=== PATIENT | female | born 1960 | race Caucasian/White ===

== ENCOUNTER → 2016-06-22 | Outpatient (CLI) | payer BC ==
[2016-01-14 16:00] VITALS: BP 103/56
[~2016-06-22] MED LIST: ALPR0.25 PO; ALPR0.254 PO; AMIO200T2 PO; ASPI-482 PO; ATOR40TA59 PO; BREO ELLIPTA 21 EACH IH; BUPR100T8 PO; BUPR75TA5 PO; BUSP5TAB PO; CARV25TA PO; CITA10TA4 PO; FURO40TA4 PO; LEVO25TA4 PO; LISI-338 PO; MULT-208 PO; PANT40TA5 PO; POTA20TA12 PO; PRAV10TA2 PO; PROP40TA PO; WARF10TA PO; WARF3TAB7 PO
--- NOTE | 2016-06-23 15:03 | CARD ---
APPROVED REPORT EXAM: Two-dimensional and M-mode echocardiogram with Doppler and color Doppler. Other Information Quality : GoodHR: 67bpm Rhythm : NSR INDICATION Chronic systolic heart failure RISK FACTORS Obesity Hyperlipidemia Family History 2D DIMENSIONS RVDd2.6 (2.9-3.5cm)Left Atrium(2D)3.7 (1.6-4.0cm) IVSd1.0 (0.7-1.1cm)Aortic Root(2D)2.9 (2.0-3.7cm) LVDd5.3 (3.9-5.9cm)LVOT Diameter2.4 (1.8-2.4cm) PWd1.0 (0.7-1.1cm)LVDs4.4 (2.5-4.0cm) FS (%) 16.0 %SV44.6 ml Aortic Valve AoV Peak Jaes.145.6cm/sAoV VTI33.0cm AO Peak GR.8.5mmHgLVOT Peak Jase.101.0cm/s AO Mean GR.5mmHgAVA (VMAX)3.11cm2 Mitral Valve MV E Rjrlmeov21.3cm/sMV E Peak Gr.4mmHg MV DECEL [id number] A Uwnvbenn06.0cm/s MV E Mean Gr.2mmHgE/A Ratio0.7 MV A [id number] Pulmonary Valve PV Peak Wpksjeka195.2cm/s Tricuspid Valve TR P. Ntztkzzb460jx/sTR Peak Gr.35mmHg Pulmonary Vein S1 Gtdicwfy14.7cm/sD2 Yklgnvuu04.0cm/s PVa bqigakpo70vupc LEFT VENTRICLE The left ventricle is normal size. There is normal left ventricular wall thickness. Left ventricle sy stolic function is moderately impaired. The Ejection Fraction is 30-35%. There is severe hypokinesis in the anterior,anteroseptal and septal hubbard. Transmitral Doppler flow pattern is Grade I-abnormal r elaxation pattern. No left ventricle thrombus noted on this study. There is no left ventricular aneur ysm. RIGHT VENTRICLE The right ventricle is normal size. There is normal right ventricular wall thickness. The right ventr icular systolic function is normal. A pacemaker/defibrillator lead is noted in the right ventricle. ATRIA The left atrium size is normal. The right atrium size is normal. The interatrial septum is intact wit h no evidence for an atrial septal defect or patent foramen ovale as noted on 2-D or Doppler imaging. AORTIC VALVE The aortic valve is mild sclerotic. Doppler and Color Flow revealed no significant aortic regurgitati on. There is no significant aortic valvular stenosis. MITRAL VALVE The mitral valve leaflets are thickened. There is no evidence of mitral valve prolapse. There is no m itral valve stenosis. Doppler and Color Flow revealed trace mitral valve regurgitation. TRICUSPID VALVE Doppler and Color Flow revealed trace to mild tricuspid regurgitation. The pulmonary artery systolic pressure is estimated at 38 mmHg. PULMONIC VALVE The pulmonary valve is normal in structure and function. Doppler and Color Flow revealed no pulmonic valvular regurgitation. There is no pulmonic valvular stenosis. GREAT VESSELS The aortic root is normal in size. The ascending aorta is normal in size. The pulmonary artery is nor mal. The IVC is normal in size and collapses >50% with inspiration. PERICARDIAL EFFUSION There is no evidence of significant pericardial effusion. Critical Notification Critical Value: No <Conclusion> The left ventricle is normal size. Left ventricle systolic function is moderately impaired. The Ejection Fraction is 30-35%. There is severe hypokinesis in the anterior,anteroseptal and septal hubbard. There is no significant aortic valvular stenosis. Doppler and Color Flow revealed no significant aortic regurgitation. Doppler and Color Flow revealed trace mitral valve regurgitation. Doppler and Color Flow revealed trace to mild tricuspid regurgitation. The pulmonary artery systolic pressure is estimated at 38 mmHg.
== END | disposition home or self-care (01) ==
LOC: ECHO 09:23
PROVIDERS: ATTEND Internal Medicine Cardiovascular Disease
DX: I50.22 Chronic systolic (congestive) heart failure (principal); I08.3 Combined rheumatic disorders of mitral, aortic and tricuspid valves
CPT/HCPCS: 93306

== ENCOUNTER 2016-08-06 09:04 | Inpatient (IN) | payer BC ==
[~2016-08-06] VITALS: Ht 162.6 cm; Wt 118.8 kg
[~2016-08-06 09:04] MED LIST changes: -WARF10TA PO; +WARF10TA45 PO
[2016-08-06] MEDS ORDERED: ALBUTEROL SULFATE 2.5 MG/3 ML NEBU. ONE (09:22)
[2016-08-06] MEDS ORDERED: IPRATRPIUM/ALBUTEROL 0.5/2.5MG 3 ML NEBU. ONE (09:22)
--- NOTE | 2016-08-06 09:28 | PHYS DOC ---
Past Medical History Past Medical History: Anxiety, CAD, High Cholesterol, Hypertension, Other Additional Past Medical Histor: obesity, HYPOKALEMIA Past Surgical History: Coronary Bypass Surgery, Pacemaker Alcohol Use: None Drug Use: None Adult General Chief Complaint Chief Complaint: SHORTNESS OF BREATH HPI HPI Patient is a 55 year old female presenting to the emergency department for evaluation of worsening shortness of breath. She says this has been going on for several days and she is coughing up clear fluid. She has been using her inhaler at home with minimal relief and she says that she feels quite short of breath especially when she is up walking around. She denies any chest pain diaphoresis nausea vomiting unilateral leg swelling. Her last putter away is Dr. Tamayo. Her room air auction saturation is 88% and she does not use oxygen at home. She says that she quit smoking 2 years ago. Review of Systems Review of Systems Constitutional: Denies fever or chills [] Eyes: Denies change in visual acuity, redness, or eye pain [] HENT: Denies nasal congestion or sore throat [] Respiratory: + cough and shortness of breath [] Cardiovascular: No additional information not addressed in HPI [] GI: Denies abdominal pain, nausea, vomiting, bloody stools or diarrhea [] : Denies dysuria or hematuria [] Musculoskeletal: Denies back pain or joint pain [] Integument: Denies rash or skin lesions [] Neurologic: Denies headache, focal weakness or sensory changes [] Current Medications Current Medications Current Medications Medications (Trade) Dose Ordered Sig/Ken Start Time Stop Time Status Last Admin Dose Admin Albuterol Sulfate (Ventolin Neb Soln) 2.5 mg 1X ONCE 08/06/16 09:30 08/06/16 09:31 DC 08/06/16 09:39 2.5 MG Albuterol/ Ipratropium (Duoneb) 3 ml 1X ONCE 08/06/16 09:30 08/06/16 09:31 DC 08/06/16 09:30 3 ML Dexamethasone Sodium Phosphate (Decadron) 10 mg 1X ONCE 08/06/16 09:30 08/06/16 09:31 DC 08/06/16 09:41 10 MG Allergies Allergies Allergies Coded Allergies Type Severity Reaction Last Updated Verified No Known Drug Allergies 01/08/15 No Physical Exam Physical Exam Constitutional: Well developed, well nourished, no acute distress, non-toxic appearance. [] HENT: Normocephalic, atraumatic, bilateral external ears normal, oropharynx moist, no oral exudates, nose normal. [] Eyes: PERRLA, EOMI, conjunctiva normal, no discharge. [] Neck: Normal range of motion, no tenderness, supple, no stridor. [] Cardiovascular:Heart rate regular rhythm, no murmur [] Lungs & Thorax: Bilateral breath sounds diminished with expiratory wheezes noted. Abdomen: Bowel sounds normal, soft, no tenderness, no masses, no pulsatile masses. [] Skin: Warm, dry, no erythema, no rash. [] Back: No tenderness, no CVA tenderness. [] Extremities: No tenderness, no cyanosis, no clubbing, ROM intact, no edema. [] Neurologic: Alert and oriented X 3, normal motor function, normal sensory function, no focal deficits noted. [] Current Patient Data Vital Signs Vital Signs Date Time Temp Pulse Resp B/P (MAP) Pulse Ox O2 Delivery O2 Flow Rate FiO2 08/06/16 09:33 94 Nasal Cannula 2.0 08/06/16 09:08 98.8 85 28 136/64 (88) 98.8 Lab Values Laboratory Tests Test 08/06/16 09:25 08/06/16 09:32 Sodium Level 137 mmol/L (136-145) Potassium Level 2.7 mmol/L (3.5-5.1) *L Chloride Level 97 mmol/L (98-107) L Carbon Dioxide Level 32 mmol/L (21-32) Anion Gap 8 (6-14) Blood Urea Nitrogen 16 mg/dL (7-20) Creatinine 1.0 mg/dL (0.6-1.0) Estimated GFR (Cockcroft-Gault) 58.0 BUN/Creatinine Ratio 16 (6-20) Glucose Level 129 mg/dL (70-99) H Calcium Level 10.7 mg/dL (8.5-10.1) H Magnesium Level 2.1 mg/dL (1.8-2.4) Total Bilirubin 0.7 mg/dL (0.2-1.0) Aspartate Amino Transferase (AST) 23 U/L (15-37) Alanine Aminotransferase (ALT) 26 U/L (14-59) Alkaline Phosphatase 182 U/L (46-116) H Troponin I Quantitative < 0.017 ng/mL (0.000-0.055) ZG-[id number]-[id number]-Type Natriuretic Peptide 1047 pg/mL (0-124) H Total Protein 8.3 g/dL (6.4-8.2) H Albumin 3.3 g/dL (3.4-5.0) L Albumin/Globulin Ratio 0.7 (1.0-1.7) L Lactic Acid Level 1.4 mmol/L (0.4-2.0) Laboratory Tests 08/06/16 09:25 EKG EKG Sinus rhythm at 86 bpm with normal axis no deviation no obvious ST elevation or depression and normal T waves. Radiology/Procedures Radiology/Procedures EXAM: Chest, single view. HISTORY: Shortness of air. COMPARISON: 09/22/2015. FINDINGS: A frontal view of the chest is obtained. There is no infiltrate, effusion or pneumothorax. The heart is normal in size for portable technique. There are findings consistent with CABG. There is a left cardiac pacemaker defibrillator with leads in expected position. IMPRESSION: No acute pulmonary finding. DICTATED and SIGNED BY: RANDI RESENDIZ MD DATE: 08/06/16 0935 Course & Med Decision Making Course & Med Decision Making Patient given Decadron in addition to 2 breathing treatments and she continued to be hypoxic and requiring oxygen. She feels somewhat better but given her degree of dyspnea and that she is still requiring oxygen she'll be admitted for further observation and treatment. Dragon Disclaimer Dragon Disclaimer This electronic medical record was generated, in whole or in part, using a voice recognition dictation system. Departure Departure Impression: Primary Impression: COPD with acute exacerbation Additional Impressions: Hypokalemia Elevated brain natriuretic peptide (BNP) level Disposition: ADMITTED INPATIENT Admitting Physician: Prerna Talavera Condition: STABLE Referrals: KARINA LEHMAN MD (PCP) Problem Qualifiers DEYSI HOLLINGSWORTH DO August 06, 2016 09:28
[2016-08-06] MEDS ORDERED: DEXAMETHASONE SOD PHOS 20 MG/5 ML VIAL. IV ONE (09:30)
[2016-08-06] MEDS ORDERED: ALBUTEROL SULFATE 2.5 MG/3 ML NEBU. NEB ONE (09:30)
[2016-08-06] MEDS ORDERED: IPRATRPIUM/ALBUTEROL 0.5/2.5MG 3 ML NEBU. NEB ONE (09:30)
--- NOTE | 2016-08-06 09:38 | RAD ---
EXAM: Chest, single view. HISTORY: Shortness of air. COMPARISON: 09/22/2015. FINDINGS: A frontal view of the chest is obtained. There is no infiltrate, effusion or pneumothorax. The heart is normal in size for portable technique. There are findings consistent with CABG. There is a left cardiac pacemaker defibrillator with leads in expected position. IMPRESSION: No acute pulmonary finding.
--- NOTE | 2016-08-06 09:42 | EKG ---
[facility] [address] [place] [address] Test Date: 2016-08-06 Test Time: 09:12:07 Pat Name: YUMIKO CASTRO Department: Room: Gender: F [employer] Project Manager: : [id number] Requested By: DEYSI HOLLINGSWORTH Order Number: [id number] Reading MD: Esperanza Arthur Measurements Intervals Eagan Rate: 86 P: -37 RI: 144 QRS: 24 QRSD: 108 T: 47 QT: 388 QTc: 467 Interpretive Statements SINUS RHYTHM LEFT ATRIAL ABNORMALITY QRS(T) CONTOUR ABNORMALITY CONSISTENT WITH ANTERIOR INFARCT PROBABLY OLD CONSISTENT WITH INFERIOR INFARCT PROBABLY OLD Electronically Signed On 08-06-2016 15:59:31 CDT by Esperanza Arthur
[2016-08-06 09:52] LABS: ALBUMIN 3.3 g/dL (3.4-5.0); ALBUMIN/GLOBULIN RATIO 0.7 (1.0-1.7); CALCIUM 10.7 mg/dL (8.5-10.1); MAGNESIUM 2.1 mg/dL (1.8-2.4); TOTAL BILIRUBIN 0.7 mg/dL (0.2-1.0); TOTAL PROTEIN 8.3 g/dL (6.4-8.2)
[2016-08-06 09:53] LABS: INR 1.1 (0.8-1.1); PROTHROMBIN TIME PATIENT 13.3 SEC (11.7-14.0)
[2016-08-06 09:59] LABS: POTASSIUM 2.7 mmol/L (3.5-5.1)
[2016-08-06] MEDS ORDERED: ONDANSETRON PF 4 MG/2 ML VIAL. IV PRN ×2 (10:00→11:45)
[2016-08-06] MEDS ORDERED: POTASSIUM CHLORIDE 20 MEQ TABLET.ER. PO ONE (10:00)
[2016-08-06] MEDS ORDERED: POTASSIUM CL 40MEQ IN 0.9%NACL 1,000 ML IV ONE (10:00)
--- NOTE | 2016-08-06 10:12 | ACF ---
Admission Forms Criteria COPD Clinical Indications for Admission to Inpatient Care (Place 'X' for any and all applicable criteria): Admission is indicated for ANY ONE of the following (1)(2)(3): [X]I. Acute exacerbation by high-risk comorbidity (e.g., pneumonia, dysrhythmia, heart failure, pleural effusion, pneumothorax) or severe underlying COPD (e.g., steroid dependent) [ ]II. Inpatient admission required rather than observation care (see Chronic Obstructive Pulmonary Disease: Observation Care) because of ANY ONE of the following: [ ]a) New or pre-existing signs or symptoms of COPD (eg, dyspnea or Tachypnea at rest or with minimal activity) that persist despite outpatient and observation care treatment [ ]b) New-onset hypoxemia (room air SaO2 less than 90%, PO2 less than 60 mm Hg (8.0 kPa)) that persists despite outpatient and observation care treatment [ ]c) Worsening of pre-existing hypoxemia (eg, new or increased requirement for supplemental oxygen to maintain oxygenation at baseline level) that persists despite outpatient and observation care treatment, with oxygen treatment needs performable only in acute inpatient setting [ ]d) Hypercarbia (PCO2 greater than 40 mm Hg (5.3 kPa))-induced respiratory acidosis (pH less than 7.35) that persists despite outpatient and observation care treatment [ ]e) Supplemental oxygen or respiratory treatments for over 24 hours that are performable only in acute inpatient setting [ ]f) Chest tube placement with active evacuation (e.g., suction, drainage) (5) [ ]g) Other condition, treatment or monitoring requiring inpatient admission [ ]III. Planned invasive surgical or diagnostic procedures requiring acute- care hospitalization [ ]IV. Acute respiratory failure (e.g., uncompensated hypercarbia, severe hypoxemia) [ ]V. Severe comorbid condition (e.g., severe steroid myopathy, acute vertebral fracture) that has acutely worsened pulmonary function [ ]. Confusion state, lethargy, obtundation, stupor or coma Extended stay beyond goal length of stay may be needed for (31)(32): [ ]a ) Respiratory Failure. [ ]b) Severe or persisting hypoxemia or hypercarbia [ ]c) Severe or persistent dyspnea [ ]d) Comorbidities (e.g. chronic heart failure, atrial fibrillation with rapid response, pneumonia) [ ]e) Malnutrition The original [facility] content created by [facility] has been revised. The portions of the content which have been revised are identified through the use of italic text or in bold, and [facility] has neither reviewed nor approved the modified material. All other unmodified content is copyright [facility]. Please see references footnoted in the original [facility] edition 2016 Admission Criteria Met?: Yes CARYN BARBOSA August 06, 2016 10:12
[2016-08-06 10:19] LABS: BASO # 0.1 x10^3/uL (0.0-0.2); BASO % 0 % (0-3); EOS % 0 % (0-3); HEMATOCRIT 31.8 % (36.0-47.0); HEMOGLOBIN 10.4 g/dL (12.0-15.5); LYMPH # 1.4 x10^3/uL (1.0-4.8); LYMPH % 7 % (24-48); MEAN CORPUSCULAR HEMOGLOBIN 26 pg (25-35); MEAN CORPUSCULAR HGB CONC 33 g/dL (31-37); MEAN CORPUSCULAR VOLUME 79 fL (79-100); MONO % 6 % (0-9); NEUT % 86 % (31-73); PLATELET COUNT 376 x10^3/uL (140-400); RED BLOOD COUNT 4.01 x10^6/uL (3.50-5.40); RED CELL DISTRIBUTION WIDTH 16.8 % (11.5-14.5); WHITE BLOOD COUNT 18.9 x10^3/uL (4.0-11.0)
[2016-08-06 10:56] VITALS: BP 140/66
[2016-08-06] MEDS ORDERED: DOCU-27 PO (11:33)
[2016-08-06] MEDS ORDERED: hydrALAZINE 20 MG/ML VIAL. IVP PRN (11:45)
[2016-08-06] MEDS ORDERED: ACETAMINOPHEN 325 MG TABLET. PO PRN (11:45)
[2016-08-06] MEDS ORDERED: ALPRAZolam 0.25 MG TABLET PO PRN (11:45)
[2016-08-06] MEDS ORDERED: MORPHINE SULFATE 2 MG/ML DISP.SYRIN. IV PRN (11:45)
[2016-08-06] MEDS ORDERED: DOCUSATE SODIUM 100 MG CAPSULE. PO PRN (11:45)
[2016-08-06] MEDS ORDERED: ALBUTEROL SULFATE 2.5 MG/3 ML NEBU. NEB PRN (11:45)
[2016-08-06] MEDS ORDERED: traMADol 50 MG TABLET PO PRN (11:45)
[2016-08-06] MEDS: IPRATRPIUM/ALBUTEROL 0.5/2.5MG 3 ML NEBU. NEB SCH ×3 (11:52→19:36)
[2016-08-06] MEDS: DOCUSATE SODIUM 100 MG CAPSULE. PO SCH (12:00)
[2016-08-06] MEDS: ASPIRIN ENTERIC COATED 81 MG TABLET.DR. PO SCH (12:18)
[2016-08-06] MEDS: POTASSIUM CHLORIDE 20 MEQ TABLET.ER. PO SCH ×2 (12:18→17:23)
[2016-08-06] MEDS: predniSONE 20 MG TABLET PO SCH (12:20)
[2016-08-06] MEDS: busPIRone 5 MG TABLET. PO SCH ×2 (12:22→21:05)
[2016-08-06] MEDS: buPROPion 75 MG TABLET. PO SCH (12:23)
[2016-08-06 12:50] LABS: PLT ESTIMATE ADEQUATE (ADEQUATE)
--- NOTE | 2016-08-06 13:36 | PDOC1 ---
History and Physical Date of Admission Date of Admission 08/06/16 Identification/Chief Complaint Chief Complaint sob Problems: Source Source: Chart review, Patient History of Present Illness History of Present Illness Patient is a 55 year old female COPD, no smoking, no home o2, COMES to ER for sob. Pt has been feeling sob for 2days, with mild cough, mild sputum, denies fever, chills, has runny nose with cough, denies sick contact or any possible exposure. in ER, sat 88% on RA. She feels better post solumedrol and duoneb in ER. on NC 2 L now. Past Medical History Cardiovascular: CAD, HTN, Hyperlipidemia Pulmonary: COPD Past Surgical History Past Surgical History: CABG Family History Family History: Coronary Artery Disease Social History Smoke: Quit ALCOHOL: social Drugs: None Current Problem List Problem List Problems Medical Problems: (1) COPD with acute exacerbation Status: Acute (2) Elevated brain natriuretic peptide (BNP) level Status: Acute (3) Hypokalemia Status: Acute Current Medications Current Medications Current Medications Medications (Trade) Dose Ordered Sig/Ken Start Time Stop Time Status Last Admin Dose Admin Acetaminophen (Tylenol) 650 mg PRN Q6HRS PRN 08/06/16 11:45 Albuterol Sulfate (Ventolin Neb Soln) 2.5 mg PRN Q2HR PRN 08/06/16 11:45 Albuterol/ Ipratropium (Duoneb) 3 ml RTQID 08/06/16 12:00 08/06/16 11:52 3 ML Alprazolam (Xanax) 0.25 mg PRN Q6HRS PRN 08/06/16 11:45 Aspirin (Ecotrin) 81 mg DAILY 08/06/16 12:00 08/06/16 12:18 81 MG Atorvastatin Calcium (Lipitor) 20 mg QHS 08/06/16 21:00 Budesonide (Pulmicort) 0.5 mg RTBID 08/06/16 20:00 Bupropion HCl (Wellbutrin) 75 mg DAILY 08/06/16 12:00 08/06/16 12:23 75 MG Buspirone HCl (Buspar) 5 mg BID 08/06/16 12:00 08/06/16 12:22 5 MG Dexamethasone Sodium Phosphate (Decadron) 10 mg 1X ONCE 08/06/16 09:30 08/06/16 09:31 DC 08/06/16 09:41 10 MG Docusate Sodium (Colace) 100 mg PRN DAILY PRN 08/06/16 11:45 Famotidine (Pepcid) 20 mg QHS 08/06/16 21:00 Furosemide (Lasix) 60 mg BID92 08/06/16 14:00 Guaifenesin (Mucinex) 600 mg BID 08/06/16 12:00 08/06/16 12:19 600 MG Hydralazine HCl (Apresoline) 10 mg PRN Q4HRS PRN 08/06/16 11:45 Levothyroxine Sodium (Synthroid) 25 mcg DAILY07 08/07/16 07:00 Morphine Sulfate 2 mg PRN Q2HR PRN 08/06/16 11:45 Non-Formulary Medication 1 puff DAILY 08/07/16 09:00 08/07/16 09:00 DC Ondansetron HCl (Zofran) 4 mg PRN Q6HRS PRN 08/06/16 11:45 Potassium Chloride/Sodium Chloride 1,000 ml @ 125 mls/hr 1X ONCE 08/06/16 10:00 08/06/16 17:59 08/06/16 10:41 125 MLS/HR Potassium Chloride (Klor-Con) 40 meq TIDWMEALS 08/06/16 12:00 08/06/16 12:18 40 MEQ Prednisone (Prednisone) 40 mg DAILY 08/06/16 12:00 08/06/16 12:20 40 MG Tramadol HCl (Ultram) 50 mg PRN Q6HRS PRN 08/06/16 11:45 Allergies Allergies Allergies Coded Allergies Type Severity Reaction Last Updated Verified No Known Drug Allergies 01/08/15 No ROS Review of System CONSTITUTIONAL: No fever or chills EYES: No recent changes SKIN: No rash or itching CARDIOVASCULAR: No chest pain, syncope, palpitations, or edema RESPIRATORY: No SOB or cough GASTROINTESTINAL: No nausea, vomiting or abdominal pain NEUROLOGICAL: No headaches or weakness ENDOCRINE: No cold or heat intolerance GENITOURINARY: No urgency or frequency of urination MUSCULOSKELETAL: No back pain or joint pain LYMPHATICS: No enlarged lymph nodes PSYCHIATRIC: No anxiety or depression Physical Exam Physical Exam GEN.: No apparent distress. Alert and oriented. HEENT: Head is normocephalic, atraumatic NECK: Supple. LUNGS: bl coarse bs HEART: RRR, S1, S2 present. Peripheral pulses intact ABDOMEN: Soft, nontender. Positive bowel sounds. EXTREMITIES: Without any cyanosis. NEUROLOGIC: Normal speech, normal tone PSYCHIATRIC: Normal affect, normal mood. SKIN: No ulcerations Vitals Vitals Vital Signs Date Time Temp Pulse Resp B/P (MAP) Pulse Ox O2 Delivery O2 Flow Rate FiO2 08/06/16 11:44 95 Nasal Cannula 2.0 08/06/16 10:56 98.3 76 24 140/66 (90) 98.3 Labs Labs Laboratory Tests Test 08/06/16 09:25 08/06/16 09:32 White Blood Count 18.9 x10^3/uL (4.0-11.0) Red Blood Count 4.01 x10^6/uL (3.50-5.40) Hemoglobin 10.4 g/dL (12.0-15.5) Hematocrit 31.8 % (36.0-47.0) Mean Corpuscular Volume 79 fL (79-100) Mean Corpuscular Hemoglobin 26 pg (25-35) Mean Corpuscular Hemoglobin Concent 33 g/dL (31-37) Red Cell Distribution Width 16.8 % (11.5-14.5) Platelet Count 376 x10^3/uL (140-400) Neutrophils (%) (Auto) 86 % (31-73) Lymphocytes (%) (Auto) 7 % (24-48) Monocytes (%) (Auto) 6 % (0-9) Eosinophils (%) (Auto) 0 % (0-3) Basophils (%) (Auto) 0 % (0-3) Neutrophils # (Auto) 16.3 x10^3uL (1.8-7.7) Lymphocytes # (Auto) 1.4 x10^3/uL (1.0-4.8) Monocytes # (Auto) 1.1 x10^3/uL (0.0-1.1) Eosinophils # (Auto) 0.0 x10^3/uL (0.0-0.7) Basophils # (Auto) 0.1 x10^3/uL (0.0-0.2) Segmented Neutrophils % 77 % (35-66) Band Neutrophils % 9 % (0-9) Lymphocytes % 7 % (24-48) Monocytes % 7 % (0-10) Platelet Estimate Adequate (ADEQUATE) Prothrombin Time 13.3 SEC (11.7-14.0) Prothromb Time International Ratio 1.1 (0.8-1.1) Activated Partial Thromboplast Time 32 SEC (24-38) Sodium Level 137 mmol/L (136-145) Potassium Level 2.7 mmol/L (3.5-5.1) Chloride Level 97 mmol/L (98-107) Carbon Dioxide Level 32 mmol/L (21-32) Anion Gap 8 (6-14) Blood Urea Nitrogen 16 mg/dL (7-20) Creatinine 1.0 mg/dL (0.6-1.0) Estimated GFR (Cockcroft-Gault) 58.0 BUN/Creatinine Ratio 16 (6-20) Glucose Level 129 mg/dL (70-99) Calcium Level 10.7 mg/dL (8.5-10.1) Magnesium Level 2.1 mg/dL (1.8-2.4) Total Bilirubin 0.7 mg/dL (0.2-1.0) Aspartate Amino Transf (AST/SGOT) 23 U/L (15-37) Alanine Aminotransferase (ALT/SGPT) 26 U/L (14-59) Alkaline Phosphatase 182 U/L (46-116) Troponin I Quantitative < 0.017 ng/mL (0.000-0.055) KP-Zxs-Z-Type Natriuretic Peptide 1047 pg/mL (0-124) Total Protein 8.3 g/dL (6.4-8.2) Albumin 3.3 g/dL (3.4-5.0) Albumin/Globulin Ratio 0.7 (1.0-1.7) Lactic Acid Level 1.4 mmol/L (0.4-2.0) Laboratory Tests Test 08/06/16 09:25 08/06/16 09:32 White Blood Count 18.9 x10^3/uL (4.0-11.0) Red Blood Count 4.01 x10^6/uL (3.50-5.40) Hemoglobin 10.4 g/dL (12.0-15.5) Hematocrit 31.8 % (36.0-47.0) Mean Corpuscular Volume 79 fL (79-100) Mean Corpuscular Hemoglobin 26 pg (25-35) Mean Corpuscular Hemoglobin Concent 33 g/dL (31-37) Red Cell Distribution Width 16.8 % (11.5-14.5) Platelet Count 376 x10^3/uL (140-400) Neutrophils (%) (Auto) 86 % (31-73) Lymphocytes (%) (Auto) 7 % (24-48) Monocytes (%) (Auto) 6 % (0-9) Eosinophils (%) (Auto) 0 % (0-3) Basophils (%) (Auto) 0 % (0-3) Neutrophils # (Auto) 16.3 x10^3uL (1.8-7.7) Lymphocytes # (Auto) 1.4 x10^3/uL (1.0-4.8) Monocytes # (Auto) 1.1 x10^3/uL (0.0-1.1) Eosinophils # (Auto) 0.0 x10^3/uL (0.0-0.7) Basophils # (Auto) 0.1 x10^3/uL (0.0-0.2) Segmented Neutrophils % 77 % (35-66) Band Neutrophils % 9 % (0-9) Lymphocytes % 7 % (24-48) Monocytes % 7 % (0-10) Platelet Estimate Adequate (ADEQUATE) Prothrombin Time 13.3 SEC (11.7-14.0) Prothromb Time International Ratio 1.1 (0.8-1.1) Activated Partial Thromboplast Time 32 SEC (24-38) Sodium Level 137 mmol/L (136-145) Potassium Level 2.7 mmol/L (3.5-5.1) Chloride Level 97 mmol/L (98-107) Carbon Dioxide Level 32 mmol/L (21-32) Anion Gap 8 (6-14) Blood Urea Nitrogen 16 mg/dL (7-20) Creatinine 1.0 mg/dL (0.6-1.0) Estimated GFR (Cockcroft-Gault) 58.0 BUN/Creatinine Ratio 16 (6-20) Glucose Level 129 mg/dL (70-99) Calcium Level 10.7 mg/dL (8.5-10.1) Magnesium Level 2.1 mg/dL (1.8-2.4) Total Bilirubin 0.7 mg/dL (0.2-1.0) Aspartate Amino Transf (AST/SGOT) 23 U/L (15-37) Alanine Aminotransferase (ALT/SGPT) 26 U/L (14-59) Alkaline Phosphatase 182 U/L (46-116) Troponin I Quantitative < 0.017 ng/mL (0.000-0.055) IM-Nsz-V-Type Natriuretic Peptide 1047 pg/mL (0-124) Total Protein 8.3 g/dL (6.4-8.2) Albumin 3.3 g/dL (3.4-5.0) Albumin/Globulin Ratio 0.7 (1.0-1.7) Lactic Acid Level 1.4 mmol/L (0.4-2.0) VTE Prophylaxis Ordered VTE Prophylaxis Devices: Yes VTE Pharmacological Prophylaxi: Yes Assessment/Plan Assessment/Plan 1. acute resp failure with hypoxia 2. COPD exacerbation 3. bronchitis 4. previous smoker 5. h/o CAD with CABG 6. PAD femoral stenosis wo sx 7. hld 8. htn 9. morbid obesity 10. hypokalemia 11. mild malnutrition 12. PPM WITh PAFIB, NO AC PLAN: PULM consult duoneb qid, albuterol prn prednisone daily dvt, gi ppx cont home meds doxy bid NC for now COUGH MEds replete K, Mag normal admit >2ds LINDSEY BOLIVAR MD August 06, 2016 13:36
[2016-08-06] MEDS: ENOXAPARIN 40 MG/0.4 ML SYRINGE. SQ SCH (14:00)
[2016-08-06] MEDS: DOXYCYCLINE HYCLATE 100 MG TABLET PO SCH ×2 (14:24→21:05)
[2016-08-06] MEDS: FUROSEMIDE 20 MG TABLET PO SCH (14:24)
[2016-08-06 15:00] VITALS: BP 128/59
[2016-08-06] MEDS: BUDESONIDE 0.5 MG/2 ML NEBU. NEB SCH (19:36)
[2016-08-06 19:50] VITALS: BP 134/68
[2016-08-06] MEDS ORDERED: FAMOTIDINE 20 MG TABLET. PO SCH (21:00)
[2016-08-06] MEDS ORDERED: ATORVASTATIN CALCIUM 40 MG TABLET. PO SCH (21:00)
[2016-08-06 23:15] VITALS: BP 135/65
[2016-08-07 03:57] VITALS: BP 145/74
[2016-08-07 07:00] VITALS: BP 144/75
[2016-08-07] MEDS ORDERED: LEVOTHYROXINE 25 MCG TABLET. PO SCH (07:00)
[2016-08-07] MEDS: IPRATRPIUM/ALBUTEROL 0.5/2.5MG 3 ML NEBU. NEB SCH ×3 (07:37→15:42)
[2016-08-07] MEDS: BUDESONIDE 0.5 MG/2 ML NEBU. NEB SCH (07:39)
[2016-08-07] MEDS: FUROSEMIDE 20 MG TABLET PO SCH ×2 (08:14→14:02)
[2016-08-07] MEDS: DOXYCYCLINE HYCLATE 100 MG TABLET PO SCH (08:14)
[2016-08-07] MEDS: buPROPion 75 MG TABLET. PO SCH (08:17)
[2016-08-07] MEDS: ASPIRIN ENTERIC COATED 81 MG TABLET.DR. PO SCH (08:17)
[2016-08-07] MEDS: POTASSIUM CHLORIDE 20 MEQ TABLET.ER. PO SCH ×3 (08:17→17:12)
[2016-08-07] MEDS: busPIRone 5 MG TABLET. PO SCH (08:17)
[2016-08-07] MEDS: DOCUSATE SODIUM 100 MG CAPSULE. PO SCH (08:17)
[2016-08-07] MEDS: predniSONE 20 MG TABLET PO SCH (08:18)
[2016-08-07] MEDS ORDERED: NON FORMULARY ITEM (Fluticasone/Vilanterol (Breo Ellipta 200-25 Mcg INH) 1 PUFF) IH SCH (09:00)
[2016-08-07] MEDS ORDERED: PRED20TA PO (09:34)
[2016-08-07] MEDS ORDERED: DOXY100T PO (09:34)
[2016-08-07] MEDS ORDERED: FAMO20TA5 PO (09:34)
[2016-08-07] MEDS ORDERED: GUAI600T38 PO (09:34)
[2016-08-07 10:53] VITALS: BP 122/61
[2016-08-07 11:11] LABS: BASO # 0.1 x10^3/uL (0.0-0.2); BASO % 0 % (0-3); EOS % 0 % (0-3); HEMATOCRIT 31.7 % (36.0-47.0); HEMOGLOBIN 10.3 g/dL (12.0-15.5); LYMPH # 0.8 x10^3/uL (1.0-4.8); LYMPH % 5 % (24-48); MEAN CORPUSCULAR HEMOGLOBIN 26 pg (25-35); MEAN CORPUSCULAR HGB CONC 33 g/dL (31-37); MEAN CORPUSCULAR VOLUME 80 fL (79-100); MONO % 2 % (0-9); NEUT % 93 % (31-73); PLATELET COUNT 357 x10^3/uL (140-400); RED BLOOD COUNT 3.97 x10^6/uL (3.50-5.40); WHITE BLOOD COUNT 17.4 x10^3/uL (4.0-11.0)
[2016-08-07 11:32] LABS: CALCIUM 11.1 mg/dL (8.5-10.1)
[2016-08-07 11:35] LABS: POTASSIUM 2.9 mmol/L (3.5-5.1)
--- NOTE | 2016-08-07 11:43 | PDOC3 ---
Discharge Summary [facility] Date of Admission: August 06, 2016 Discharge Date: August 07, 2016 Admitting Diagnosis 1. acute resp failure with hypoxia 2. COPD exacerbation 3. bronchitis 4. previous smoker 5. h/o CAD with CABG 6. PAD femoral stenosis wo sx 7. hld 8. htn 9. morbid obesity 10. hypokalemia 11. mild malnutrition 12. PPM WITh PAFIB, NO AC Problems: Final Diagnosis CONSULTS pulm, pending Brief Hospital Course Patient is a 55 year old female COPD, no smoking, no home o2, COMES to ER for sob. Pt has been feeling sob for 2days, with mild cough, mild sputum, denies fever, chills, has runny nose with cough, denies sick contact or any possible exposure. in ER, sat 88% on RA. She feels better post solumedrol and duoneb in ER. on NC 2 L now. pt feels much better today, sat ok on RA, still cough with some green sputum. stable to dc home, doxy x5ds, prednisone x5ds. replete K. dc time 35min GEN.: No apparent distress. Alert and oriented. HEENT: Head is normocephalic, atraumatic NECK: Supple. LUNGS: bl coarse bs HEART: RRR, S1, S2 present. Peripheral pulses intact ABDOMEN: Soft, nontender. Positive bowel sounds. EXTREMITIES: Without any cyanosis. NEUROLOGIC: Normal speech, normal tone PSYCHIATRIC: Normal affect, normal mood. SKIN: No ulcerations Problems: Disposition home CONDITION AT DISCHARGE: Improved Diet regular, cardiac Scheduled Aspirin (Aspir 81), 1 TAB PO DAILY, (Reported) Atorvastatin Calcium (Atorvastatin Calcium), 0.5 TAB PO DAILY, (Reported) Bupropion Hcl (Wellbutrin), 75 MG PO DAILY, (Reported) Buspirone Hcl (Buspirone Hcl), 1 TAB PO BID, (Reported) Docusate Sodium (Colace), 1 CAP PO DAILY, (Reported) Doxycycline Hyclate (Doxycycline Hyclate), 100 MG PO BID Famotidine (Famotidine), 20 MG PO QHS Fluticasone/Vilanterol (Breo Ellipta 200-25 Mcg INH), 1 PUFF IH DAILY, (Reported ) Furosemide (Furosemide), 1.5 TAB PO BID, (Reported) Guaifenesin (Mucinex), 600 MG PO BID Levothyroxine Sodium (Levothyroxine Sodium), 25 MCG PO DAILYAC, (Reported) Potassium Chloride (Potassium Chloride), 2 TAB PO TID, (Reported) Prednisone (Prednisone), 40 MG PO DAILY Scheduled PRN Alprazolam (Xanax), 0.25 MG PO PRN Q6HRS PRN for ANXIETY / AGITATION, (Reported) Follow Up fu with pcp in 2 weeks LINDSEY BOLIVAR MD August 07, 2016 11:43
[2016-08-07] MEDS: POTASSIUM CHLORIDE 10MEQ 100 ML IV SCH ×4 (12:11→17:13)
--- NOTE | 2016-08-07 12:11 | PDOC ---
PULMONARY PROGRESS NOTES Vitals Vital Signs Date Time Temp Pulse Resp B/P (MAP) Pulse Ox O2 Delivery O2 Flow Rate FiO2 08/07/16 11:42 95 Nasal Cannula 2.0 08/07/16 10:53 98.2 83 18 122/61 (81) 98.2 General: Alert Lungs: Other Cardiovascular: S1 Abdomen: Soft, Non-tender Extremities: Other Labs Laboratory Tests Test 08/06/16 09:25 08/06/16 09:32 08/07/16 03:21 White Blood Count 18.9 x10^3/uL (4.0-11.0) 17.4 x10^3/uL (4.0-11.0) Red Blood Count 4.01 x10^6/uL (3.50-5.40) 3.97 x10^6/uL (3.50-5.40) Hemoglobin 10.4 g/dL (12.0-15.5) 10.3 g/dL (12.0-15.5) Hematocrit 31.8 % (36.0-47.0) 31.7 % (36.0-47.0) Mean Corpuscular Volume 79 fL (79-100) 80 fL (79-100) Mean Corpuscular Hemoglobin 26 pg (25-35) 26 pg (25-35) Mean Corpuscular Hemoglobin Concent 33 g/dL (31-37) 33 g/dL (31-37) Red Cell Distribution Width 16.8 % (11.5-14.5) 17.0 % (11.5-14.5) Platelet Count 376 x10^3/uL (140-400) 357 x10^3/uL (140-400) Neutrophils (%) (Auto) 86 % (31-73) 93 % (31-73) Lymphocytes (%) (Auto) 7 % (24-48) 5 % (24-48) Monocytes (%) (Auto) 6 % (0-9) 2 % (0-9) Eosinophils (%) (Auto) 0 % (0-3) 0 % (0-3) Basophils (%) (Auto) 0 % (0-3) 0 % (0-3) Neutrophils # (Auto) 16.3 x10^3uL (1.8-7.7) 16.2 x10^3uL (1.8-7.7) Lymphocytes # (Auto) 1.4 x10^3/uL (1.0-4.8) 0.8 x10^3/uL (1.0-4.8) Monocytes # (Auto) 1.1 x10^3/uL (0.0-1.1) 0.3 x10^3/uL (0.0-1.1) Eosinophils # (Auto) 0.0 x10^3/uL (0.0-0.7) 0.0 x10^3/uL (0.0-0.7) Basophils # (Auto) 0.1 x10^3/uL (0.0-0.2) 0.1 x10^3/uL (0.0-0.2) Segmented Neutrophils % 77 % (35-66) Band Neutrophils % 9 % (0-9) Lymphocytes % 7 % (24-48) Monocytes % 7 % (0-10) Platelet Estimate Adequate (ADEQUATE) Prothrombin Time 13.3 SEC (11.7-14.0) Prothromb Time International Ratio 1.1 (0.8-1.1) Activated Partial Thromboplast Time 32 SEC (24-38) Sodium Level 137 mmol/L (136-145) 140 mmol/L (136-145) Potassium Level 2.7 mmol/L (3.5-5.1) 2.9 mmol/L (3.5-5.1) Chloride Level 97 mmol/L (98-107) 100 mmol/L (98-107) Carbon Dioxide Level 32 mmol/L (21-32) 30 mmol/L (21-32) Anion Gap 8 (6-14) 10 (6-14) Blood Urea Nitrogen 16 mg/dL (7-20) 17 mg/dL (7-20) Creatinine 1.0 mg/dL (0.6-1.0) 1.0 mg/dL (0.6-1.0) Estimated GFR (Cockcroft-Gault) 58.0 58.0 BUN/Creatinine Ratio 16 (6-20) Glucose Level 129 mg/dL (70-99) 132 mg/dL (70-99) Calcium Level 10.7 mg/dL (8.5-10.1) 11.1 mg/dL (8.5-10.1) Magnesium Level 2.1 mg/dL (1.8-2.4) Total Bilirubin 0.7 mg/dL (0.2-1.0) Aspartate Amino Transf (AST/SGOT) 23 U/L (15-37) Alanine Aminotransferase (ALT/SGPT) 26 U/L (14-59) Alkaline Phosphatase 182 U/L (46-116) Troponin I Quantitative < 0.017 ng/mL (0.000-0.055) MY-Bbe-K-Type Natriuretic Peptide 1047 pg/mL (0-124) Total Protein 8.3 g/dL (6.4-8.2) Albumin 3.3 g/dL (3.4-5.0) Albumin/Globulin Ratio 0.7 (1.0-1.7) Lactic Acid Level 1.4 mmol/L (0.4-2.0) Laboratory Tests Test 08/07/16 03:21 White Blood Count 17.4 x10^3/uL (4.0-11.0) Red Blood Count 3.97 x10^6/uL (3.50-5.40) Hemoglobin 10.3 g/dL (12.0-15.5) Hematocrit 31.7 % (36.0-47.0) Mean Corpuscular Volume 80 fL (79-100) Mean Corpuscular Hemoglobin 26 pg (25-35) Mean Corpuscular Hemoglobin Concent 33 g/dL (31-37) Red Cell Distribution Width 17.0 % (11.5-14.5) Platelet Count 357 x10^3/uL (140-400) Neutrophils (%) (Auto) 93 % (31-73) Lymphocytes (%) (Auto) 5 % (24-48) Monocytes (%) (Auto) 2 % (0-9) Eosinophils (%) (Auto) 0 % (0-3) Basophils (%) (Auto) 0 % (0-3) Neutrophils # (Auto) 16.2 x10^3uL (1.8-7.7) Lymphocytes # (Auto) 0.8 x10^3/uL (1.0-4.8) Monocytes # (Auto) 0.3 x10^3/uL (0.0-1.1) Eosinophils # (Auto) 0.0 x10^3/uL (0.0-0.7) Basophils # (Auto) 0.1 x10^3/uL (0.0-0.2) Sodium Level 140 mmol/L (136-145) Potassium Level 2.9 mmol/L (3.5-5.1) Chloride Level 100 mmol/L (98-107) Carbon Dioxide Level 30 mmol/L (21-32) Anion Gap 10 (6-14) Blood Urea Nitrogen 17 mg/dL (7-20) Creatinine 1.0 mg/dL (0.6-1.0) Estimated GFR (Cockcroft-Gault) 58.0 Glucose Level 132 mg/dL (70-99) Calcium Level 11.1 mg/dL (8.5-10.1) Medications Active Scripts Medications Dose Route/Sig Max Daily Dose Days Date Category Mucinex (Guaifenesin) 600 Mg Tablet.er 600 Mg PO BID 7 08/07/16 Rx Famotidine 20 Mg Tablet 20 Mg PO QHS 5 08/07/16 Rx Prednisone 20 Mg Tablet 40 Mg PO DAILY 5 08/07/16 Rx Doxycycline Hyclate 100 Mg Tablet 100 Mg PO BID 5 08/07/16 Rx Colace (Docusate Sodium) 100 Mg Capsule 1 Cap PO DAILY 08/06/16 Reported Breo Ellipta 200-25 Mcg INH (Fluticasone/Vilanterol) 1 Each Blst.w.dev 1 Puff IH DAILY 01/14/16 Reported Xanax (Alprazolam) 0.25 Mg Tablet 0.25 Mg PO PRN Q6HRS PRN 02/19/15 Reported Wellbutrin (Bupropion Hcl) 75 Mg Tablet 75 Mg PO DAILY 02/19/15 Reported Levothyroxine Sodium 25 Mcg Tablet 25 Mcg PO DAILYAC 02/19/15 Reported Furosemide 40 Mg Tablet 1.5 Tab PO BID 01/08/15 Reported Aspir 81 (Aspirin) 81 Mg Tablet.dr 1 Tab PO DAILY 01/08/15 Reported Buspirone Hcl 5 Mg Tablet 1 Tab PO BID 01/08/15 Reported Potassium Chloride 20 Meq Tab.er.prt 2 Tab PO TID 01/08/15 Reported Atorvastatin Calcium 40 Mg Tablet 0.5 Tab PO DAILY 01/08/15 Reported Impression . FULL NOTE DICTATED OK TO D/C FOLLOW UP IN OFFICE LESLIE SHIELDS MD August 07, 2016 12:11
[2016-08-07] MEDS: ENOXAPARIN 40 MG/0.4 ML SYRINGE. SQ SCH (14:00)
[2016-08-07 15:00] VITALS: BP 122/52
--- NOTE | 2016-08-07 15:10 | CONS ---
DATE OF CONSULTATION: 08/07/2016 ATTENDING PHYSICIAN: Dr. Talavera. REASON FOR CONSULTATION: The patient seen in pulmonary consultation at the request of Dr. Talavera for increasing shortness of air. HISTORY OF PRESENT ILLNESS: The patient is a 55-year-old that presented with increasing shortness of air. She has underlying COPD, normally utilize her albuterol at home. No oxygen supplementation. No fever, chills or night sweats. No productive cough, no hemoptysis. She denied any inhalation of any toxic fumes or dust. PAST MEDICAL HISTORY: COPD, tobacco dependence in remission, morbid obesity, hyperlipidemia, and previous myocardial infarction complicated with respiratory failure requiring mechanical ventilation and tracheotomy. She has cardiomyopathy with ejection fraction 25%, diverticulitis. PAST SURGICAL HISTORY: As indicated above. ALLERGIES: No known drug allergies. CURRENT MEDICATIONS: List was reviewed. Please see the MRAD. REVIEW OF SYSTEMS: As indicated above, otherwise, a 10-point system was reviewed and negative. SOCIAL HISTORY: She quit tobacco when she had a myocardial infarction. PHYSICAL EXAMINATION: GENERAL: Morbid obese individual in no respiratory distress. VITAL SIGNS: Stable. O2 saturation was greater than 92%, currently on 2 liters. HEENT: Eyes, the sclerae were nonicteric. NECK: Jugular venous distention could not be assessed secondary to body habitus. CHEST: Full expansion. LUNGS: Adequate airway flow, no wheezes. CARDIOVASCULAR: Regular rate and rhythm with S1, S2, no S3. ABDOMEN: Soft, nontender, nondistended. EXTREMITIES: No clubbing, cyanosis. Minimal edema. NEUROLOGIC: The patient was awake, alert, following commands. A detailed neuro exam was not performed. Chest x-ray was reviewed, no acute cardiopulmonary process. LABORATORY DATA: Reviewed. IMPRESSION: 1. Progressive dyspnea secondary to acute exacerbation of chronic obstructive pulmonary disease, deconditioning and cardiomyopathy. 2. Cardiomyopathy. 3. Coronary artery disease status post coronary artery bypass grafting, complicated with respiratory failure, status post tracheostomy, decannulation. 4. Morbid obesity. 5. Hypertension. 6. Hyperlipidemia. 7. Tobacco dependence in remission. PLAN: 1. The patient's respiratory status has improved. She wishes to be discharged home and think it will be safe for discharge with to taper prednisone, avoid tobacco inhalation, continue nebulized treatments at home. 2. Doxycycline for nonspecific bronchitis. 3. Prescriptions were written for nebulized machine and DuoNeb. LESLIE SHIELDS MD DR: Maria Teresa JOB#: [id number] / [id number]
== END 2016-08-07 19:00 | disposition home or self-care (01) | DRG 189 ==
LOC: ER 09:04 → 6 SOUTH 09:55
PROVIDERS: ADMIT Internal Medicine; ATTEND Internal Medicine
DX: J96.01 Acute respiratory failure with hypoxia (principal); E44.1 Mild protein-calorie malnutrition; J44.1 Chronic obstructive pulmonary disease with (acute) exacerbation; I42.9 Cardiomyopathy, unspecified; Z68.42 Body mass index [BMI] 45.0-49.9, adult; I48.0 Paroxysmal atrial fibrillation; F17.210 Nicotine dependence, cigarettes, uncomplicated; F41.9 Anxiety disorder, unspecified; I25.10 Atherosclerotic heart disease of native coronary artery without angina pectoris; I10 Essential (primary) hypertension; E66.01 Morbid (severe) obesity due to excess calories; E78.5 Hyperlipidemia, unspecified; E87.6 Hypokalemia; Z82.49 Family history of ischemic heart disease and other diseases of the circulatory system; Z95.1 Presence of aortocoronary bypass graft; I25.2 Old myocardial infarction; Z93.0 Tracheostomy status; Z79.899 Other long term (current) drug therapy; J40 Bronchitis, not specified as acute or chronic
CPT/HCPCS: 36415; 71010; 80048; 80053; 83605; 83735; 83880; 84484; 85007; 85027; 85610; 85730; 93005; 94250; 94640; 94760; 96374; J1100; J3480; J7512; J7620; 99285-25

== ENCOUNTER 2016-12-25 14:12 | Emergency (ER) | payer BC ==
[~2016-12-25] VITALS: Ht 162.6 cm; Wt 122.9 kg
[~2016-12-25 14:12] MED LIST changes: +DOCU-109 PO; +DOXY100T PO; +FAMO20TA5 PO; +GUAI600T47 PO; +PRED20TA PO
--- NOTE | 2016-12-25 15:16 | EKG ---
[facility] [address] [place] [address] Test Date: 2016-12-25 Test Time: 14:33:56 Pat Name: YUMIKO CASTRO Department: Room: Gender: F Data Collection Interviewer: : 1960 Requested By: ANA GALINDO Order Number: [id number] Reading MD: Measurements Intervals [place] Rate: 72 P: 3 MT: 194 QRS: -12 QRSD: 96 T: 89 QT: 412 QTc: 458 Interpretive Statements SINUS RHYTHM LEFTWARD AXIS QRS(T) CONTOUR ABNORMALITY CONSISTENT WITH ANTERIOR INFARCT PROBABLY OLD CONSISTENT WITH INFERIOR INFARCT POSSIBLY RECENT ST & T ABNORMALITY, CONSIDER HIGH LATERAL ISCHEMIA OR LEFT VENTRICULAR STRAIN RI6.01 Unconfirmed report No previous ECG available for comparison
[2016-12-25 15:21] LABS: BASO # 0.1 x10^3/uL (0.0-0.2); BASO % 2 % (0-3); EOS % 3 % (0-3); HEMATOCRIT 37.1 % (36.0-47.0); HEMOGLOBIN 11.8 g/dL (12.0-15.5); LYMPH # 1.1 x10^3/uL (1.0-4.8); LYMPH % 17 % (24-48); MEAN CORPUSCULAR HEMOGLOBIN 25 pg (25-35); MEAN CORPUSCULAR HGB CONC 32 g/dL (31-37); MEAN CORPUSCULAR VOLUME 79 fL (79-100); MONO % 7 % (0-9); NEUT % 73 % (31-73); PLATELET COUNT 288 x10^3/uL (140-400); RED CELL DISTRIBUTION WIDTH 19.8 % (11.5-14.5); WHITE BLOOD COUNT 6.6 x10^3/uL (4.0-11.0)
[2016-12-25 15:33] LABS: CALCIUM 10.9 mg/dL (8.5-10.1); CREATININE 0.8 mg/dL (0.6-1.0); GFR 74.7; POTASSIUM 4.2 mmol/L (3.5-5.1)
[2016-12-25 15:47] LABS: ALBUMIN 3.7 g/dL (3.4-5.0); ALBUMIN/GLOBULIN RATIO 0.9 (1.0-1.7); TOTAL BILIRUBIN 0.6 mg/dL (0.2-1.0)
--- NOTE | 2016-12-25 15:48 | PHYS DOC ---
Past Medical History Past Medical History: Anxiety, CAD, COPD, High Cholesterol, Hypertension, [place], Other Additional Past Medical Histor: obesity, HYPOKALEMIA Past Surgical History: Coronary Bypass Surgery, Hysterectomy, Pacemaker Additional Past Surgical Histo: TEMP TRACHEOSTOMY Alcohol Use: None Drug Use: None Adult General Chief Complaint Chief Complaint: SHORTNESS OF BREATH HPI HPI Patient is a 56 year old F who presents with shortness of breath for the past 3 days. Patient states that her shortness of breath has gotten worse over the past 3 days and is worse with exertion. When walking from triage to her room she was actually running in the 88%. Patient does not wear oxygen at home. Patient denies any fevers. Patient describes mild chest pain associated with this. Patient also describes increased swelling to her lower extremity. Patient denies any nausea/vomiting/diarrhea. Patient has other complaints. Review of Systems Review of Systems GEN: Denies fevers, chills, sweats HEENT: Denies blurred vision, sore throat CV: Denies chest pain RESP: shortness of air, cough GI: Denies n/v/d NEURO: Denies confusion, dizziness MSK: Denies weakness, joint pain/swelling Current Medications Current Medications Current Medications Medications (Trade) Dose Ordered Sig/Ken Start Time Stop Time Status Last Admin Dose Admin Dexamethasone Sodium Phosphate (Decadron) 10 mg 1X ONCE 12/25/16 19:15 12/25/16 19:16 DC 12/25/16 19:06 10 MG Info (Do NOT chart on this entry -- for MONITORING) 1 each PRN DAILY PRN 12/25/16 18:00 12/25/16 19:18 DC Iohexol (Omnipaque 300 Mg/ml) 75 ml 1X ONCE 12/25/16 17:45 12/25/16 17:46 DC Allergies Allergies Allergies Coded Allergies Type Severity Reaction Last Updated Verified No Known Drug Allergies 01/08/15 No Physical Exam Physical Exam GEN.: No apparent distress. Alert and oriented. HEENT: Head is normocephalic, atraumatic NECK: Supple. LUNGS: Decreased breath sounds bilaterally with not much air movement HEART: RRR, S1, S2 present. Peripheral pulses intact ABDOMEN: Soft, nontender. Positive bowel sounds. EXTREMITIES: Without any cyanosis. +1 pitting edema to lower extremity bilaterally NEUROLOGIC: Normal speech, normal tone PSYCHIATRIC: Normal affect, normal mood. SKIN: No ulcerations Current Patient Data Vital Signs Vital Signs Date Time Temp Pulse Resp B/P (MAP) Pulse Ox O2 Delivery O2 Flow Rate FiO2 12/25/16 19:00 77 132/68 (89) 97 Room Air 12/25/16 18:00 18 12/25/16 14:27 98.9 98.9 Lab Values Laboratory Tests Test 12/25/16 15:06 12/25/16 15:45 White Blood Count 6.6 x10^3/uL (4.0-11.0) Red Blood Count 4.70 x10^6/uL (3.50-5.40) Hemoglobin 11.8 g/dL (12.0-15.5) L Hematocrit 37.1 % (36.0-47.0) Mean Corpuscular Volume 79 fL (79-100) Mean Corpuscular Hemoglobin 25 pg (25-35) Mean Corpuscular Hemoglobin Concent 32 g/dL (31-37) Red Cell Distribution Width 19.8 % (11.5-14.5) H Platelet Count 288 x10^3/uL (140-400) Neutrophils (%) (Auto) 73 % (31-73) Lymphocytes (%) (Auto) 17 % (24-48) L Monocytes (%) (Auto) 7 % (0-9) Eosinophils (%) (Auto) 3 % (0-3) Basophils (%) (Auto) 2 % (0-3) Neutrophils # (Auto) 4.8 x10^3uL (1.8-7.7) Lymphocytes # (Auto) 1.1 x10^3/uL (1.0-4.8) Monocytes # (Auto) 0.4 x10^3/uL (0.0-1.1) Eosinophils # (Auto) 0.2 x10^3/uL (0.0-0.7) Basophils # (Auto) 0.1 x10^3/uL (0.0-0.2) Sodium Level 140 mmol/L (136-145) Potassium Level 4.2 mmol/L (3.5-5.1) Chloride Level 103 mmol/L (98-107) Carbon Dioxide Level 30 mmol/L (21-32) Anion Gap 7 (6-14) Blood Urea Nitrogen 12 mg/dL (7-20) Creatinine 0.8 mg/dL (0.6-1.0) Estimated GFR (Cockcroft-Gault) 74.7 BUN/Creatinine Ratio 15 (6-20) Glucose Level 108 mg/dL (70-99) H Lactic Acid Level 1.1 mmol/L (0.4-2.0) Calcium Level 10.9 mg/dL (8.5-10.1) H Total Bilirubin 0.6 mg/dL (0.2-1.0) Aspartate Amino Transferase (AST) 24 U/L (15-37) Alanine Aminotransferase (ALT) 23 U/L (14-59) Alkaline Phosphatase 128 U/L (46-116) H Troponin I Quantitative < 0.017 ng/mL (0.000-0.055) Total Protein 8.0 g/dL (6.4-8.2) Albumin 3.7 g/dL (3.4-5.0) Albumin/Globulin Ratio 0.9 (1.0-1.7) L Urine Collection Type Unknown Urine Color Yellow Urine Clarity Clear Urine pH 6.5 Urine Specific [place] <=1.005 Urine Protein Negative mg/dL (NEG-TRACE) Urine Glucose (UA) Negative mg/dL (NEG) Urine Ketones (Stick) Negative mg/dL (NEG) Urine Blood Negative (NEG) Urine Nitrite Negative (NEG) Urine Bilirubin Negative (NEG) Urine Urobilinogen Dipstick 0.2 mg/dL (0.2 mg/dL) Urine Leukocyte Esterase Small (NEG) Urine RBC 0 /HPF (0-2) Urine WBC 1-4 /HPF (0-4) Urine Squamous Epithelial Cells Few /LPF Urine Bacteria Few /HPF (0-FEW) Laboratory Tests 12/25/16 15:06 Laboratory Tests 12/25/16 15:06 EKG EKG 1433: EKG shows normal sinus rhythm rate of 72 no STEMI[] Radiology/Procedures Radiology/Procedures Chest x-ray NAD[] Course & Med Decision Making Course & Med Decision Making Pertinent Labs and Imaging studies reviewed. (See chart for details) ED course: Patient was seen and examined emergency room CBC, CMP, UA, blood cultures, lactic acid, chest x-ray, CTA of the chest were ordered 1900: On reevaluation the patient would like to go home and does not want the CT angios the chest. I had a long discussion with the patient in regards to my differential diagnosis including dissection and PE patient understood the severity is of these diagnoses which included and disability however she felt this was a simple COPD exacerbation which is been consistent with her previous exacerbations and since she feels much better and would like to go home. Patient was able to make informed medical decision declined a CT scan of the chest at this time. Patient will follow-up with PCP in one to 2 days return if symptoms increase. We'll discharge the patient home on prednisone and doxycycline MDM: After reviewing the chart, CC/HPI/PMH, physical exam, [lab results], [ radiological results], I do not believe the patient is having a STEMI or significant rust or infection warranting further workup and/or admission at this time. It was recommended patient obtain a CT scan of the chest however the patient has declined after making an informed decision. Patient is stable for discharge. Additional verbal discharge instructions were provided to the patient and that if symptoms get worse or any new symptoms arise that are worrisome to the patient she is to return to the emergency room immediately [] Dragon Disclaimer Dragon Disclaimer This electronic medical record was generated, in whole or in part, using a voice recognition dictation system. Departure Departure Impression: Primary Impression: COPD exacerbation Disposition: ADMITTED INPATIENT Condition: IMPROVED Referrals: KARINA LEHMAN MD (PCP) Patient Instructions: Chronic Obstructive Pulmonary Disease Additional Instructions: Please follow-up with your family physician in the next one to 2 days and return if symptoms increase Scripts Prednisone (PREDNISONE) 50 Mg Tablet 1 TAB PO DAILY for 4 Days, #4 TAB Prov: ANA GALINDO DO 12/25/16 Doxycycline Hyclate (DOXYCYCLINE HYCLATE) 100 Mg Tablet 1 TAB PO BID, #14 TAB Prov: ANA GALINDO DO 12/25/16 ANA GALINDO DO Dec 25, 2016 15:47
[2016-12-25 15:54] LABS: BILIRUBIN,URINE NEGATIVE (NEG); GLUCOSE,URINE NEGATIVE (NEG); NITRITE,URINE NEGATIVE (NEG); PH,URINE 6.5; PROTEIN,URINE NEGATIVE (NEG-TRACE); UROBILINOGEN,URINE 0.2 mg/dL (0.2 mg/dL)
[2016-12-25 16:09] LABS: BACTERIA,URINE FEW /HPF (0-FEW); RBC,URINE 0 /HPF (0-2); SQUAMOUS EPITHELIAL CELL,UR FEW /LPF
--- NOTE | 2016-12-25 16:09 | RAD ---
Indication: Short of air. Technique: Two-view chest radiograph was obtained. Comparison is from August 06, 2016. Findings: The lungs are clear. There is no pleural effusion. The heart is not enlarged and there is no heart failure. Pacemaker is noted. Median sternotomy wires are present. Impression: No acute thoracic findings.
[2016-12-25] MEDS ORDERED: IOHEXOL 300 MG/ML 75 ML VIAL IV ONE (17:45)
[2016-12-25] MEDS ORDERED: CONTRAST GIVEN MC PRN (18:00)
[2016-12-25 19:00] VITALS: BP 132/68
[2016-12-25] MEDS ORDERED: PRED50TA PO (19:04)
[2016-12-25] MEDS ORDERED: DOXY100T PO (19:04)
[2016-12-25] MEDS ORDERED: DEXAMETHASONE SOD PHOS 4 MG/ML VIAL IV ONE (19:15)
== END 2016-12-25 19:12 | disposition home or self-care (01) ==
LOC: ER 14:12
DX: J44.1 Chronic obstructive pulmonary disease with (acute) exacerbation (principal); E78.00 Pure hypercholesterolemia, unspecified; I10 Essential (primary) hypertension; I25.10 Atherosclerotic heart disease of native coronary artery without angina pectoris; F41.9 Anxiety disorder, unspecified; Z95.0 Presence of cardiac pacemaker; Z95.1 Presence of aortocoronary bypass graft; Z90.710 Acquired absence of both cervix and uterus
CPT/HCPCS: 36415; 71020; 80053; 81001; 83605; 84484; 85025; 87040; 87086; 93005; 96374; 99285; J1100

== ENCOUNTER → 2017-12-20 | Outpatient (CLI) | payer BC ==
[~2017-12-20] MED LIST changes: -AMIO200T2 PO; +AMIO200T4 PO; +PERFLUTREN PROTEIN-A MICROSPHR 0.22 MG/ML 3 ML VIAL. IV ONE; +PRED50TA PO; +WARF3TAB50 PO; -WARF3TAB7 PO
[2017-12-20] MEDS: PERFLUTREN PROTEIN-A MICROSPHR 0.22 MG/ML 3 ML VIAL. IV PRN ×2 (14:23→14:24)
--- NOTE | 2017-12-21 12:15 | CARD ---
MR#: [id number] Date of Study: 12/20/2017 Ordering Physician: LEO ROMERO, Referring Physician: LEO ROMERO Tech: Tamar Lafleur RDCS APPROVED REPORT EXAM: Two-dimensional and M-mode echocardiogram with Doppler and color Doppler. Other Information Quality : Technically Limited Technically limited study due to body habitus. INDICATION COPD Congestive Heart Failure Echo Enhancing Agent Agent/Amount Used: Optison 2mL RISK FACTORS Obesity 2D DIMENSIONS RVDd2.7 (2.9-3.5cm)Left Atrium(2D)3.4 (1.6-4.0cm) IVSd0.8 (0.7-1.1cm)Aortic Root(2D)2.7 (2.0-3.7cm) LVDd5.7 (3.9-5.9cm)LVOT Diameter2.1 (1.8-2.4cm) PWd0.8 (0.7-1.1cm)LVDs4.7 (2.5-4.0cm) FS (%) 17.8 %SV59.4 ml LVEF(%)35.0 (>50%) Aortic Valve AoV Peak Jase.138.7cm/sAoV VTI27.8cm AO Peak GR.7.7mmHgLVOT Peak Jase.66.7cm/s LVOT VTI 15.03cmAO Mean GR.5mmHg KARELY (VMAX)1.32ko1EBQ (VTI)1.91cm2 Mitral Valve MV E Zfrdctbn10.4cm/sMV DECEL PKPP807lt MV A Uludgqmu43.3cm/sMV LOS40cr E/A Ratio1.2MVA (PHT)5.49cm2 TDI E/Lateral E'9.2E/Medial E'11.0 Tricuspid Valve TR P. Yhcxzpoa408wf/sRAP FPHNUBCG9rhKy TR Peak Gr.91biVrUYNT88gzSp Pulmonary Vein S1 Eumvycxa94.2cm/sD2 Eajnvuhg96.8cm/s LEFT VENTRICLE Technically difficult study aided by the use of Definity. The left ventricle is normal size. There is normal left ventricular wall thickness. Left ventricle systolic function is moderately impaired. The Ejection Fraction is estimated at 35%. There is globall hypokinesis of the left ventricle. There is severe hypokinesisin in the apical septal wall. Transmitral Doppler flow pattern is Grade II-pseudono rmal filling dynamics. RIGHT VENTRICLE The right ventricle is normal size. The right ventricular systolic function is normal. ATRIA The left atrium size is normal. The right atrium size is normal. The interatrial septum is intact wit h no evidence for an atrial septal defect or patent foramen ovale as noted on 2-D or Doppler imaging. AORTIC VALVE The aortic valve is not well visualized but appears to be functioning normally by Doppler interrogati on. Doppler and Color Flow revealed no significant aortic regurgitation. There is no significant aort ic valvular stenosis. MITRAL VALVE The mitral valve is calcified but opens well. There is no evidence of mitral valve prolapse. There is no mitral valve stenosis. Doppler and Color Flow revealed trace mitral valve regurgitation. TRICUSPID VALVE The tricuspid valve is normal in structure and function. Doppler and Color Flow revealed mild tricusp id regurgitation. The PA pressure was estimated at 37 mmHg. There is no tricuspid valve stenosis. PULMONIC VALVE The pulmonic valve is not well visualized. Doppler and Color Flow revealed no pulmonic valvular regur gitation. There is no pulmonic valvular stenosis. GREAT VESSELS The aortic root is normal in size. The ascending aorta is normal in size. The IVC was not visualized. PERICARDIAL EFFUSION There is no evidence of significant pericardial effusion. Critical Notification Critical Value: No <Conclusion> Technically difficult study aided by the use of Definity. The left ventricle is normal size. Left ventricle systolic function is moderately impaired. The Ejection Fraction is estimated at 35%. There is globall hypokinesis of the left ventricle. There is severe hypokinesisin in the apical septal wall. There is no significant aortic valvular stenosis. Doppler and Color Flow revealed no significant aortic regurgitation. Doppler and Color Flow revealed trace mitral valve regurgitation. Doppler and Color Flow revealed mild tricuspid regurgitation. The PA pressure was estimated at 37 mmHg. Signed by : Osiel Humphreys MD Electronically Approved : 12/21/2017 12:14:28
== END | disposition home or self-care (01) ==
LOC: ECHO 13:01
PROVIDERS: ATTEND Internal Medicine Cardiovascular Disease
DX: I11.0 Hypertensive heart disease with heart failure (principal); I50.22 Chronic systolic (congestive) heart failure; I07.1 Rheumatic tricuspid insufficiency; J44.9 Chronic obstructive pulmonary disease, unspecified; E66.9 Obesity, unspecified; Z68.42 Body mass index [BMI] 45.0-49.9, adult; Z87.891 Personal history of nicotine dependence
CPT/HCPCS: C8929; Q9956

== ENCOUNTER → 2018-06-11 | Outpatient (CLI) | payer BC ==
[~2018-06-11] MED LIST changes: -PERFLUTREN PROTEIN-A MICROSPHR 0.22 MG/ML 3 ML VIAL. IV ONE
--- NOTE | 2018-06-11 16:47 | RAD ---
Radionuclide parathyroid scan, 06/11/2018: HISTORY: Elevated serum calcium level Imaging of the lower neck neck was performed following IV injection of 22 mCi of technetium 99m sestamibi. The thyroid activity is mildly asymmetric with greater inferior extension on the right. No discrete avid radionuclide uptake is seen on the initial or delayed images to suggest a parathyroid adenoma. IMPRESSION: Mildly asymmetric thyroid uptake of the radionuclide without definite evidence of a parathyroid adenoma. Correlation with sonographic findings may be helpful. Electronically signed by: Jonathan Hart MD (06/11/2018 4:44 PM) [facility]
== END | disposition home or self-care (01) ==
LOC: NM 10:29
PROVIDERS: ATTEND Family Medicine
DX: E21.3 Hyperparathyroidism, unspecified (principal)
CPT/HCPCS: 78070; 96374; A9500

== ENCOUNTER 2018-10-11 18:40 | Emergency (ER) | payer BC ==
[~2018-10-11] VITALS: Ht 162.6 cm; Wt 111.1 kg
[~2018-10-11 18:40] MED LIST changes: -PANT40TA5 PO; +PANT40TA77 PO
[2018-10-11] MEDS ORDERED: IV NORMAL SALINE 1000ML BAG 1,000 ML IV ONE (19:00)
[2018-10-11] MEDS ORDERED: HYDR-3164 PO (19:31)
[2018-10-11] MEDS ORDERED: AMOX1TAB61 PO (19:31)
[2018-10-11 19:39] VITALS: BP 136/80
--- NOTE | 2018-10-11 22:31 | PHYS DOC ---
Past Medical History Past Medical History: Diverticulosis, [place] Additional Past Medical Histor: obesity, HYPOKALEMIA Past Surgical History: Hysterectomy Additional Past Surgical Histo: TEMP TRACHEOSTOMY Alcohol Use: None Drug Use: None Adult General Chief Complaint Chief Complaint: ABDOMINAL PAIN [facility] HPI Patient is a 57 year old female presents with chief complaint of left lower quadrant abdominal pain sharp nonradiating isolated to a specific area very similar to last time she had diverticulitis she has been eating popcorn and cashews this summer no fever no diarrhea no problems urinating no diffuse pain All other ROS neg unless otherwise noted in HPI Review of Systems Review of Systems see above Current Medications Current Medications Current Medications Medications (Trade) Dose Ordered Sig/Ken Start Time Stop Time Status Last Admin Dose Admin Sodium Chloride 1,000 ml @ 1,000 mls/hr 1X ONCE 10/11/18 19:00 10/11/18 19:33 DC Allergies Allergies Allergies Coded Allergies Type Severity Reaction Last Updated Verified No Known Drug Allergies 01/08/15 No Physical Exam Physical Exam see above Constitutional: Well developed, well nourished, no acute distress, non-toxic appearance. [] HENT: Normocephalic, atraumatic, bilateral external ears normal, oropharynx moist, no oral exudates, nose normal. [] Eyes: PERRLA, EOMI, conjunctiva normal, no discharge. [] Neck: Normal range of motion, no tenderness, supple, no stridor. [] Pulmonary: Normal respiratory effort no increased work of breathing no obvious chest wall trauma Abdomen: Bowel sounds normal, soft, focal area off ttp llq with no peritoneal signs noted. Skin: Warm, dry, no erythema, no rash. [] Back: No tenderness, no CVA tenderness. [] Extremities: No tenderness, no cyanosis, no clubbing, ROM intact, no edema. [] Neurologic: Alert and oriented X 3, normal motor function, normal sensory function, no focal deficits noted. [] Psychologic: Affect normal, judgement normal, mood normal. [] Current Patient Data Vital Signs Vital Signs Date Time Temp Pulse Resp B/P (MAP) Pulse Ox O2 Delivery O2 Flow Rate FiO2 10/11/18 19:39 79 16 136/80 (98) 95 Room Air 10/11/18 19:10 98.4 98.4 EKG EKG [] Radiology/Procedures Radiology/Procedures [] Course & Med Decision Making Course & Med Decision Making Pertinent Labs and Imaging studies reviewed. (See chart for details) []Patient likely has mild diverticulitis she was a hard stick. I had ordered labs and a CT scan. Her abdominal examination is really not significant and not concerned about any peritonitis. Talked about a trial of antibiotic therapy prior to CT scan and lab work I think this is very reasonable she has mild findings on clinical examination she was given strict return precautions to come back in 3 days should she not be feeling any better come back sooner for fever diffuse pain or any other symptoms or concerns she was understanding of instructions and this was the plan that she strongly preferred Dragon Disclaimer Dragon Disclaimer This electronic medical record was generated, in whole or in part, using a voice recognition dictation system. Departure Departure Impression: Primary Impression: Diverticulitis Disposition: 01 HOME, SELF-CARE Condition: STABLE Referrals: KARINA LEHMAN MD (PCP) Patient Instructions: Diverticulitis, Qeuz-qx-Frpq Scripts Hydrocodone/Apap 5-325 (NORCO 5-325 TABLET) 1 Each Tablet 1-2 EACH PO PRN Q6HRS PRN for PAIN, #6 as needed for pain Prov: BAILEE NUÑEZ MD 10/11/18 Amoxicillin/Potassium Clav (AUGMENTIN 875-125 TABLET) 1 Each Tablet 1 TAB PO BID, #20 TAB Prov: BAILEE NUÑEZ MD 10/11/18 BAILEE NUÑEZ MD Oct 11, 2018 22:31
== END 2018-10-11 20:06 | disposition home or self-care (01) ==
LOC: ER 18:40
DX: K57.92 Diverticulitis of intestine, part unspecified, without perforation or abscess without bleeding (principal); I25.2 Old myocardial infarction; E66.9 Obesity, unspecified; Z68.41 Body mass index [BMI] 40.0-44.9, adult; Z90.710 Acquired absence of both cervix and uterus; Z93.0 Tracheostomy status
CPT/HCPCS: 99284

== ENCOUNTER 2018-10-16 15:18 | Emergency (ER) | payer BC ==
[~2018-10-16] VITALS: Ht 162.6 cm; Wt 126.1 kg
[~2018-10-16 15:18] MED LIST changes: +AMOX1TAB61 PO; +HYDR-3164 PO
--- NOTE | 2018-10-16 15:52 | PHYS DOC ---
Past Medical History Past Medical History: Diverticulosis, [place] Additional Past Medical Histor: obesity, HYPOKALEMIA Past Surgical History: Hysterectomy Additional Past Surgical Histo: TEMP TRACHEOSTOMY Alcohol Use: None Drug Use: None Adult General Chief Complaint Chief Complaint: ABDOMINAL PAIN [facility] HPI Patient is a 57 year old female who presents with abdominal pain since last Sunday. The patient was seen here on Sunday night and prescribed amoxicillin as she had similar pain to her last diverticulitis exacerbation. She states that is not gotten better with the amoxicillin so she came back. The patient states her pain is currently 3 out of 10 in severity and throbbing. The patient states that the pain is intermittent and gets as high as 9 out of 10 in severity. States she's been taking [place]'s at home. Review of Systems Review of Systems Constitutional: Denies fever or chills [] Eyes: Denies change in visual acuity, redness, or eye pain [] HENT: Denies nasal congestion or sore throat [] Respiratory: Denies cough or shortness of breath [] Cardiovascular: No additional information not addressed in HPI [] GI: Reports abdominal pain Denies nausea, vomiting, bloody stools or diarrhea [] : Denies dysuria or hematuria [] Musculoskeletal: Denies back pain or joint pain [] Integument: Denies rash or skin lesions [] Neurologic: Denies headache, focal weakness or sensory changes [] Endocrine: Denies polyuria or polydipsia [] Complete systems were reviewed and found to be within normal limits, except as documented in this note. Current Medications Current Medications Current Medications Medications (Trade) Dose Ordered Sig/Ken Start Time Stop Time Status Last Admin Dose Admin Info (CONTRAST GIVEN -- Rx MONITORING) 1 each PRN DAILY PRN 10/16/18 16:45 10/18/18 16:44 Iohexol (Omnipaque 300 Mg/ml) 75 ml 1X ONCE 10/16/18 16:45 10/16/18 16:46 DC 10/16/18 16:56 75 ML Morphine Sulfate (Morphine Sulfate) 2 mg 1X ONCE 10/16/18 16:00 10/16/18 16:01 DC Ondansetron HCl (Zofran) 4 mg 1X ONCE 10/16/18 16:00 10/16/18 16:01 DC Allergies Allergies Allergies Coded Allergies Type Severity Reaction Last Updated Verified No Known Drug Allergies 01/08/15 No Physical Exam Physical Exam Constitutional: Well developed, well nourished, no acute distress, non-toxic appearance. [] HENT: Normocephalic, atraumatic, bilateral external ears normal, oropharynx m oist, no oral exudates, nose normal. [] Eyes: PERRLA, EOMI, conjunctiva normal, no discharge. [] Neck: Normal range of motion, no tenderness, supple, no stridor. [] Cardiovascular:Heart rate regular rhythm, no murmur [] Lungs & Thorax: Bilateral breath sounds clear to auscultation [] Abdomen: Bowel sounds normal, soft, mild tenderness to llq, no masses, no pulsatile masses. [] Skin: Warm, dry, no erythema, no rash. [] Back: No tenderness, no CVA tenderness. [] Extremities: No tenderness, no cyanosis, no clubbing, ROM intact, no edema. [] Neurologic: Alert and oriented X 3, normal motor function, normal sensory function, no focal deficits noted. [] Psychologic: Affect normal, judgement normal, mood normal. [] Current Patient Data Vital Signs Vital Signs Date Time Temp Pulse Resp B/P (MAP) Pulse Ox O2 Delivery O2 Flow Rate FiO2 10/16/18 15:50 98.1 78 18 157/85 (109) 99 Room Air 98.1 Lab Values Laboratory Tests Test 10/16/18 16:15 10/16/18 17:02 White Blood Count 5.1 x10^3/uL (4.0-11.0) Red Blood Count 3.64 x10^6/uL (3.50-5.40) Hemoglobin 13.0 g/dL (12.0-15.5) Hematocrit 39.1 % (36.0-47.0) Mean Corpuscular Volume 108 fL (79-100) H Mean Corpuscular Hemoglobin 36 pg (25-35) H Mean Corpuscular Hemoglobin Concent 33 g/dL (31-37) Red Cell Distribution Width 16.1 % (11.5-14.5) H Platelet Count 322 x10^3/uL (140-400) Neutrophils (%) (Auto) 70 % (31-73) Lymphocytes (%) (Auto) 20 % (24-48) L Monocytes (%) (Auto) 7 % (0-9) Eosinophils (%) (Auto) 2 % (0-3) Basophils (%) (Auto) 1 % (0-3) Neutrophils # (Auto) 3.6 x10^3/uL (1.8-7.7) Lymphocytes # (Auto) 1.0 x10^3/uL (1.0-4.8) Monocytes # (Auto) 0.4 x10^3/uL (0.0-1.1) Eosinophils # (Auto) 0.1 x10^3/uL (0.0-0.7) Basophils # (Auto) 0.1 x10^3/uL (0.0-0.2) Sodium Level 141 mmol/L (136-145) Potassium Level 5.2 mmol/L (3.5-5.1) H Chloride Level 103 mmol/L (98-107) Carbon Dioxide Level 30 mmol/L (21-32) Anion Gap 8 (6-14) Blood Urea Nitrogen 11 mg/dL (7-20) Creatinine 1.0 mg/dL (0.6-1.0) Estimated GFR (Cockcroft-Gault) 57.6 BUN/Creatinine Ratio 11 (6-20) Glucose Level 102 mg/dL (70-99) H Calcium Level 10.8 mg/dL (8.5-10.1) H Total Bilirubin 0.6 mg/dL (0.2-1.0) Aspartate Amino Transferase (AST) 12 U/L (15-37) L Alanine Aminotransferase (ALT) 20 U/L (14-59) Alkaline Phosphatase 189 U/L (46-116) H Total Protein 8.2 g/dL (6.4-8.2) Albumin 3.6 g/dL (3.4-5.0) Albumin/Globulin Ratio 0.8 (1.0-1.7) L Lipase 101 U/L (73-393) Urine Collection Type Unknown Urine Color Yellow Urine Clarity Clear Urine pH 7.5 Urine Specific Mclean 1.010 Urine Protein Negative mg/dL (NEG-TRACE) Urine Glucose (UA) Negative mg/dL (NEG) Urine Ketones (Stick) Negative mg/dL (NEG) Urine Blood Negative (NEG) Urine Nitrite Negative (NEG) Urine Bilirubin Negative (NEG) Urine Urobilinogen Dipstick 0.2 mg/dL (0.2 mg/dL) Urine Leukocyte Esterase Negative (NEG) Urine RBC 3-5 /HPF (0-2) Urine WBC 1-4 /HPF (0-4) Urine Squamous Epithelial Cells Mod /LPF Urine Bacteria 0 /HPF (0-FEW) Urine Hyaline Casts Few /HPF Urine Mucus Slight /LPF Laboratory Tests 10/16/18 16:15 Laboratory Tests 10/16/18 16:15 EKG EKG [] Radiology/Procedures Radiology/Procedures PATIENT: YUMIKO CASTRO SACCOUNT: [id number] : 1960 LOCATION: ER AGE: 57 SEX: F EXAM STATUS: REG ER ORD. PHYSICIAN: KAYLA GIANG APRN REASON: abdominal pain-LLQ PAIN INJ 60ML OMNI 300 PROCEDURE: CT ABD PELV W/ IV CONTRST ONLY PQRS Compliance Statement: One or more of the following individualized dose reduction techniques were utilized for this examination: 1. Automated exposure control 2. Adjustment of the mA and/or kV according to patient size 3. Use of iterative reconstruction technique CT abdomen/pelvis with contrast 10/16/2018 3:47 PM INDICATION: Abdominal pain with left lower quadrant abdominal pain. COMPARISON: CT abdomen/pelvis February 27, 2015 TECHNIQUE: Multiple axial CT images of the abdomen and pelvis were obtained after the intravenous administration of 60 mL Omnipaque 300. Coronal and sagittal reformats are provided. FINDINGS: 3.5 mm solid noncalcified subpleural nodule is identified in the right middle lobe previously obscured by consolidative changes on February 27, 2015. Lung bases are clear. Heart size within normal limits. Cardiac pacer wires are partially profiled. Liver, spleen, bilateral adrenal glands and pancreas are normal in appearance. Cholelithiasis. No intrahepatic or extra hepatic biliary ductal dilatation. The abdominal aorta is normal in course and caliber. There are no pathologically enlarged lymph nodes in the abdomen and pelvis. There is no abdominal free fluid. There is no free intraperitoneal air. Moderate calcified atheromatous plaque is identified involving the abdominal aorta. There is moderate colonic diverticulosis. Focal short segment bowel wall thickening and pericolonic inflammatory changes are identified at the junction of the descending colon and sigmoid colon involving a segment measuring 5.6 cm. No peridiverticular abscess or free intraperitoneal air to suggest microperforation. Appendix is normal in appearance. There is a 17 mm nonobstructing calculus in inferior pole left kidney. Additional 6 mm nonobstructing calculus is identified in the inferior pole the left kidney. 4 mm nonobstructing calculus is identified in the interpolar right kidney. 2 mm nonobstructing calculus is identified in the inferior pole the right kidney. No hydronephrosis. Ureters and urinary bladder are normal in appearance. Uterus is surgically absent. No suspicious adnexal mass is identified. No suspicious osseous abnormality is identified. IMPRESSION: 1. Findings are compatible with acute diverticulitis involving the junction of the descending and sigmoid colon. No peridiverticular abscess or microperforation. 2. Nonobstructing bilateral renal calculi measuring up to 17 mm in inferior pole of the left kidney. 3. 3.5 mm subpleural solid noncalcified pulmonary nodule in the right middle lobe. Optional one-year follow-up chest CT may be of benefit based on clinical risk factors per Fleischner 2017 pulmonary nodule guidelines. Electronically signed by: Tucker Stringer MD (10/16/2018 5:17 PM) [facility] DICTATED and SIGNED BY: TUCKER STRINGER MD DATE: 10/16/18 2995 Course & Med Decision Making Course & Med Decision Making Pertinent Labs and Imaging studies reviewed. (See chart for details) Will get labs, give supportive care, and get CT scan. CT scan shows diverticulitis. Will switch antibiotics to Cipro and Flagyl. Labs are unremarkable with exception of potassium of 5.2. Will have her make an appointment with primary care for a potassium recheck early next week. Dragon Disclaimer Dragon Disclaimer This electronic medical record was generated, in whole or in part, using a voice recognition dictation system. Departure Departure Impression: Primary Impression: Diverticulitis Additional Impression: Hyperkalemia Disposition: 01 HOME, SELF-CARE Condition: STABLE Referrals: KARINA LEHMAN MD (PCP) Patient Instructions: Diverticulitis Additional Instructions: Thank you for visiting [facility]. We appreciate you trusting us with your care. If any additional problems come up don't hesitate to return to visit us. Please follow up with your primary care provider so they can plan additional care if needed and know about the problem that you had. If symptoms worsen come back to the Emergency Department. Any concerning symptoms that start such as chest pain, shortness of air, weakness or numbness on one side of the b zhang, running high fevers or any other concerning symptoms return to the ER. You have been prescribed an antibiotic today to help fight your infection. Please take all of the antibiotic as directed. If after 48 hours the infection is not improving, please return for more care. If the infection worsens, return to ER for additional care. Please fill your medications at any pharmacy and follow the prescription instructions. Please follow up with primary care early next week to have your potassium rechecked. It was 5.2 in the ER. Scripts Ondansetron (ONDANSETRON ODT) 4 Mg Tab.rapdis 1 TAB PO PRN Q6-8HRS PRN for NAUSEA, #16 TAB Prov: KAYLA GIANG APRN 10/16/18 Ciprofloxacin Hcl (CIPROFLOXACIN HCL) 500 Mg Tablet 1 TAB PO BID for 10 Days, #20 TAB Prov: KAYLA GIANG APRN 10/16/18 Metronidazole (METRONIDAZOLE) 500 Mg Tablet 1 TAB PO TID for 10 Days, #30 TAB Prov: KAYLA GIANG APRN 10/16/18 Problem Qualifiers KAYLA GIANG APRN Oct 16, 2018 15:52
[2018-10-16] MEDS ORDERED: ONDANSETRON PF 4 MG/2 ML VIAL. IV ONE (16:00)
[2018-10-16] MEDS ORDERED: MORPHINE SULFATE 2 MG/ML VIAL. IV ONE (16:00)
[2018-10-16 16:35] LABS: BASO # 0.1 x10^3/uL (0.0-0.2); BASO % 1 % (0-3); EOS # 0.1 x10^3/uL (0.0-0.7); EOS % 2 % (0-3); HEMATOCRIT 39.1 % (36.0-47.0); LYMPH % 20 % (24-48); MEAN CORPUSCULAR HEMOGLOBIN 36 pg (25-35); MEAN CORPUSCULAR HGB CONC 33 g/dL (31-37); MEAN CORPUSCULAR VOLUME 108 fL (79-100); MONO # 0.4 x10^3/uL (0.0-1.1); MONO % 7 % (0-9); NEUT # 3.6 x10^3/uL (1.8-7.7); NEUT % 70 % (31-73); PLATELET COUNT 322 x10^3/uL (140-400); RED BLOOD COUNT 3.64 x10^6/uL (3.50-5.40); RED CELL DISTRIBUTION WIDTH 16.1 % (11.5-14.5); WHITE BLOOD COUNT 5.1 x10^3/uL (4.0-11.0)
[2018-10-16 16:41] LABS: CALCIUM 10.8 mg/dL (8.5-10.1); GFR 57.6; POTASSIUM 5.2 mmol/L (3.5-5.1)
[2018-10-16] MEDS ORDERED: IOHEXOL 300 MG/ML 100ML VIAL. IV ONE (16:45)
[2018-10-16] MEDS ORDERED: CONTRAST GIVEN. MC PRN (16:45)
[2018-10-16 16:47] LABS: ALBUMIN 3.6 g/dL (3.4-5.0); ALBUMIN/GLOBULIN RATIO 0.8 (1.0-1.7); TOTAL BILIRUBIN 0.6 mg/dL (0.2-1.0); TOTAL PROTEIN 8.2 g/dL (6.4-8.2)
--- NOTE | 2018-10-16 17:20 | RAD ---
PQRS Compliance Statement: One or more of the following individualized dose reduction techniques were utilized for this examination: 1. Automated exposure control 2. Adjustment of the mA and/or kV according to patient size 3. Use of iterative reconstruction technique CT abdomen/pelvis with contrast 10/16/2018 3:47 PM INDICATION: Abdominal pain with left lower quadrant abdominal pain. COMPARISON: CT abdomen/pelvis February 27, 2015 TECHNIQUE: Multiple axial CT images of the abdomen and pelvis were obtained after the intravenous administration of 60 mL Omnipaque 300. Coronal and sagittal reformats are provided. FINDINGS: 3.5 mm solid noncalcified subpleural nodule is identified in the right middle lobe previously obscured by consolidative changes on February 27, 2015. Lung bases are clear. Heart size within normal limits. Cardiac pacer wires are partially profiled. Liver, spleen, bilateral adrenal glands and pancreas are normal in appearance. Cholelithiasis. No intrahepatic or extra hepatic biliary ductal dilatation. The abdominal aorta is normal in course and caliber. There are no pathologically enlarged lymph nodes in the abdomen and pelvis. There is no abdominal free fluid. There is no free intraperitoneal air. Moderate calcified atheromatous plaque is identified involving the abdominal aorta. There is moderate colonic diverticulosis. Focal short segment bowel wall thickening and pericolonic inflammatory changes are identified at the junction of the descending colon and sigmoid colon involving a segment measuring 5.6 cm. No peridiverticular abscess or free intraperitoneal air to suggest microperforation. Appendix is normal in appearance. There is a 17 mm nonobstructing calculus in inferior pole left kidney. Additional 6 mm nonobstructing calculus is identified in the inferior pole the left kidney. 4 mm nonobstructing calculus is identified in the interpolar right kidney. 2 mm nonobstructing calculus is identified in the inferior pole the right kidney. No hydronephrosis. Ureters and urinary bladder are normal in appearance. Uterus is surgically absent. No suspicious adnexal mass is identified. No suspicious osseous abnormality is identified. IMPRESSION: 1. Findings are compatible with acute diverticulitis involving the junction of the descending and sigmoid colon. No peridiverticular abscess or microperforation. 2. Nonobstructing bilateral renal calculi measuring up to 17 mm in inferior pole of the left kidney. 3. 3.5 mm subpleural solid noncalcified pulmonary nodule in the right middle lobe. Optional one-year follow-up chest CT may be of benefit based on clinical risk factors per Fleischner 2017 pulmonary nodule guidelines. Electronically signed by: Arlyn Vo MD (10/16/2018 5:17 PM) [facility]
[2018-10-16 17:24] LABS: BILIRUBIN,URINE NEGATIVE (NEG); CLARITY,URINE CLEAR; COLOR,URINE YELLOW; NITRITE,URINE NEGATIVE (NEG); PH,URINE 7.5; PROTEIN,URINE NEGATIVE (NEG-TRACE); UROBILINOGEN,URINE 0.2 mg/dL (0.2 mg/dL)
[2018-10-16 17:34] LABS: BACTERIA,URINE 0 /HPF (0-FEW); HYALINE CASTS, URINE FEW /HPF; SQUAMOUS EPITHELIAL CELL,UR MOD /LPF
[2018-10-16] MEDS ORDERED: CIPR500T PO (17:56)
[2018-10-16] MEDS ORDERED: METR-34 PO (17:56)
[2018-10-16] MEDS ORDERED: ONDA4TAB12 PO (17:56)
[2018-10-16 18:37] VITALS: BP 118/77
== END 2018-10-16 18:59 | disposition home or self-care (01) ==
LOC: ER 15:18
DX: K57.32 Diverticulitis of large intestine without perforation or abscess without bleeding (principal); E87.5 Hyperkalemia; N20.0 Calculus of kidney; R91.1 Solitary pulmonary nodule; I25.2 Old myocardial infarction; E66.9 Obesity, unspecified; Z90.710 Acquired absence of both cervix and uterus; Z68.42 Body mass index [BMI] 45.0-49.9, adult
CPT/HCPCS: 36415; 74177; 80053; 81001; 83690; 85025; 99285; Q9967

== ENCOUNTER 2018-12-24 16:21 | Emergency (ER) | payer BC ==
[~2018-12-24] VITALS: Ht 162.6 cm; Wt 130.4 kg
[~2018-12-24 16:21] MED LIST changes: -CEFD300C PO; -HYDR-2761 PO; -PERFLUTREN PROTEIN-A MICROSPHR 0.22 MG/ML 3 ML VIAL. IV ONE
[2018-12-24 17:36] LABS: BILIRUBIN,URINE NEGATIVE (NEG); CLARITY,URINE CLEAR; COLOR,URINE YELLOW; NITRITE,URINE POSITIVE (NEG); PROTEIN,URINE NEGATIVE (NEG-TRACE); UROBILINOGEN,URINE 0.2 mg/dL (0.2 mg/dL)
[2018-12-24 17:51] LABS: BACTERIA,URINE MANY /HPF (0-FEW); SQUAMOUS EPITHELIAL CELL,UR OCC /LPF; WBC,URINE 20-40 /HPF (0-4)
[2018-12-24] MEDS ORDERED: IV NORMAL SALINE 1000ML BAG 1,000 ML IV ONE (18:15)
[2018-12-24] MEDS ORDERED: cefTRIAXone IV Push 1 GM VIAL. IVP ONE (18:15)
[2018-12-24 18:27] LABS: BASO # 0.1 x10^3/uL (0.0-0.2); BASO % 1 % (0-3); EOS # 0.1 x10^3/uL (0.0-0.7); EOS % 1 % (0-3); LYMPH # 0.8 x10^3/uL (1.0-4.8); LYMPH % 8 % (24-48); MEAN CORPUSCULAR HEMOGLOBIN 34 pg (25-35); MEAN CORPUSCULAR HGB CONC 33 g/dL (31-37); MEAN CORPUSCULAR VOLUME 103 fL (79-100); MONO # 0.5 x10^3/uL (0.0-1.1); MONO % 5 % (0-9); NEUT # 8.7 x10^3/uL (1.8-7.7); NEUT % 86 % (31-73); PLATELET COUNT 319 x10^3/uL (140-400); RED BLOOD COUNT 4.09 x10^6/uL (3.50-5.40); RED CELL DISTRIBUTION WIDTH 15.3 % (11.5-14.5); WHITE BLOOD COUNT 10.1 x10^3/uL (4.0-11.0)
[2018-12-24 18:28] LABS: CALCIUM 10.7 mg/dL (8.5-10.1); CREATININE 1.1 mg/dL (0.6-1.0); GFR 51.4; POTASSIUM 4.6 mmol/L (3.5-5.1)
[2018-12-24] MEDS ORDERED: IV NORMAL SALINE 500ML BAG 500 ML IV ONE (18:30)
[2018-12-24 18:34] LABS: ALBUMIN 3.6 g/dL (3.4-5.0); ALBUMIN/GLOBULIN RATIO 0.8 (1.0-1.7); TOTAL BILIRUBIN 0.8 mg/dL (0.2-1.0); TOTAL PROTEIN 8.2 g/dL (6.4-8.2)
[2018-12-24] MEDS ORDERED: KETOROLAC 15 MG/ML VIAL. IV ONE (18:45)
[2018-12-24] MEDS ORDERED: MORPHINE SULFATE 4 MG/ML VIAL. IV ONE (18:45)
--- NOTE | 2018-12-24 19:19 | PHYS DOC ---
Past Medical History Past Medical History: CHF, COPD, Diverticulosis, [place] Additional Past Medical Histor: obesity, HYPOKALEMIA Past Surgical History: Coronary Bypass Surgery, Hysterectomy, Other Additional Past Surgical Histo: TEMP TRACHEOSTOMY Alcohol Use: None Drug Use: None Adult General Chief Complaint Chief Complaint: FLANK PAIN HPI HPI Patient is a 58 year old female, accompanied by her , who presents to the emergency department with complaints of the sudden onset of right low back pain since 2:30 this afternoon. Patient states she also has some nausea, she denies any vomiting, diarrhea, or abdominal pain. Patient states she always has urinary frequency, she denies any physical urinating, dysuria, or hematuria. Patient also denies any fever. She currently rates the pain a 10 out of 10 on the pain scale, she denies any alleviating or exacerbating factors. Review of Systems Review of Systems Constitutional: Denies fever or chills [] Eyes: Denies redness, or eye pain [] HENT: Denies nasal congestion or sore throat [] Respiratory: Denies cough or shortness of breath [] Cardiovascular: No additional information not addressed in HPI [] GI: Denies abdominal pain, nausea, vomiting, or diarrhea [] : Denies dysuria or hematuria; see HPI Musculoskeletal: Denies joint pain; see HPI Integument: Denies rash or skin lesions [] Neurologic: Denies headache, focal weakness or sensory changes [] Endocrine: Denies polyuria or polydipsia [] Complete systems were reviewed and found to be within normal limits, except as documented in this note. Current Medications Current Medications Current Medications Medications (Trade) Dose Ordered Sig/[facility] Start Time Stop Time Status Last Admin Dose Admin Ceftriaxone Sodium (Rocephin) 1 gm 1X ONCE 12/24/18 18:15 12/24/18 18:16 DC 12/24/18 18:18 1 GM Ketorolac Tromethamine (Toradol 15mg Vial) 15 mg 1X ONCE 12/24/18 18:45 12/24/18 18:45 DC Morphine Sulfate (Morphine Sulfate) 4 mg 1X ONCE 12/24/18 18:45 12/24/18 18:46 DC 12/24/18 18:51 4 MG Sodium Chloride 500 ml @ 500 mls/hr 1X ONCE 12/24/18 18:30 12/24/18 19:29 DC 12/24/18 18:18 500 MLS/HR Allergies Allergies Allergies Coded Allergies Type Severity Reaction Last Updated Verified No Known Drug Allergies 01/08/15 No Physical Exam Physical Exam Constitutional: Well developed, well nourished, no acute distress, non-toxic appearance, obese. [] HENT: Normocephalic, atraumatic, bilateral external ears normal, oropharynx moist, no oral exudates, nose normal. [] Eyes: PERRLA, EOMI, conjunctiva normal, no discharge. [] Neck: Normal range of motion, no stridor. [] Cardiovascular:Heart rate regular rhythm, no murmur [] Lungs & Thorax: Bilateral breath sounds clear to auscultation [] Abdomen: Bowel sounds normal, soft, no tenderness, no masses, no pulsatile masses. [] Skin: Warm, dry, no erythema, no rash. [] Back: No bony tenderness, R CVA tenderness. [] Extremities: No cyanosis, ROM intact Neurologic: Alert and oriented X 3, normal motor function, normal sensory function, no focal deficits noted. [] Psychologic: Affect normal, judgement normal, mood normal. [] Current Patient Data Vital Signs Vital Signs Date Time Temp Pulse Resp B/P (MAP) Pulse Ox O2 Delivery O2 Flow Rate FiO2 12/24/18 19:32 80 20 140/76 (97) 96 Room Air 12/24/18 17:00 97.7 97.7 Lab Values Laboratory Tests Test 12/24/18 16:23 12/24/18 18:10 Urine Color Yellow Urine Clarity Clear Urine pH 6.0 Urine Specific [place] 1.010 Urine Protein Negative mg/dL (NEG-TRACE) Urine Glucose (UA) Negative mg/dL (NEG) Urine Ketones (Stick) Negative mg/dL (NEG) Urine Blood Moderate (NEG) Urine Nitrite Positive (NEG) Urine Bilirubin Negative (NEG) Urine Urobilinogen Dipstick 0.2 mg/dL (0.2 mg/dL) Urine Leukocyte Esterase Large (NEG) Urine RBC 3-5 /HPF (0-2) Urine WBC 20-40 /HPF (0-4) Urine Squamous Epithelial Cells Occ /LPF Urine Bacteria Many /HPF (0-FEW) Urine Mucus Slight /LPF White Blood Count 10.1 x10^3/uL (4.0-11.0) Red Blood Count 4.09 x10^6/uL (3.50-5.40) Hemoglobin 14.0 g/dL (12.0-15.5) Hematocrit 42.0 % (36.0-47.0) Mean Corpuscular Volume 103 fL (79-100) H Mean Corpuscular Hemoglobin 34 pg (25-35) Mean Corpuscular Hemoglobin Concent 33 g/dL (31-37) Red Cell Distribution Width 15.3 % (11.5-14.5) H Platelet Count 319 x10^3/uL (140-400) Neutrophils (%) (Auto) 86 % (31-73) H Lymphocytes (%) (Auto) 8 % (24-48) L Monocytes (%) (Auto) 5 % (0-9) Eosinophils (%) (Auto) 1 % (0-3) Basophils (%) (Auto) 1 % (0-3) Neutrophils # (Auto) 8.7 x10^3/uL (1.8-7.7) H Lymphocytes # (Auto) 0.8 x10^3/uL (1.0-4.8) L Monocytes # (Auto) 0.5 x10^3/uL (0.0-1.1) Eosinophils # (Auto) 0.1 x10^3/uL (0.0-0.7) Basophils # (Auto) 0.1 x10^3/uL (0.0-0.2) Segmented Neutrophils % 86 % (35-66) H Lymphocytes % 8 % (24-48) L Monocytes % 5 % (0-10) Eosinophils % 1 % (0-5) Platelet Estimate Increased (ADEQUATE) Anisocytosis Slight Ovalocytes Occ Sodium Level 135 mmol/L (136-145) L Potassium Level 4.6 mmol/L (3.5-5.1) Chloride Level 99 mmol/L (98-107) Carbon Dioxide Level 28 mmol/L (21-32) Anion Gap 8 (6-14) Blood Urea Nitrogen 12 mg/dL (7-20) Creatinine 1.1 mg/dL (0.6-1.0) H Estimated GFR (Cockcroft-Gault) 51.4 BUN/Creatinine Ratio 11 (6-20) Glucose Level 111 mg/dL (70-99) H Calcium Level 10.7 mg/dL (8.5-10.1) H Total Bilirubin 0.8 mg/dL (0.2-1.0) Aspartate Amino Transferase (AST) 15 U/L (15-37) Alanine Aminotransferase (ALT) 23 U/L (14-59) Alkaline Phosphatase 206 U/L (46-116) H Total Protein 8.2 g/dL (6.4-8.2) Albumin 3.6 g/dL (3.4-5.0) Albumin/Globulin Ratio 0.8 (1.0-1.7) L Laboratory Tests 12/24/18 18:10 Laboratory Tests 12/24/18 18:10 EKG EKG [] Radiology/Procedures Radiology/Procedures Pt declined CT scan after discussing urine results and symptoms. Pt states the pain is constant and she denies any abdominal pain or urinary sx. [] Course & Med Decision Making Course & Med Decision Making Pertinent Labs and Imaging studies reviewed. (See chart for details) dx: pylonephritis, hypercalcemia Talked with Dr. Ramirez about possible admission, advised Dr. Ortega that patient would like to go home. Per Dr. Ortega will prescribe patient omnicef bid x10 days and have patient stop taking any calcium supplements. Follow up with PCP in 1-2 days for recheck. Prescriptions written for zofran, hydrocodone, and omnicef. Increase clear fluids. Avoid bladder irritants such as caffeine, carbonation, and spicy foods. Pt instructed to stop taking any calcium supplements if currently taking.. Follow up with her primary care doctor in 1-2 days, return to the ER if symptoms worsen. Pt verbalized an understanding of home care, medications, follow-up, and return to ED instructions and was in agreement with the plan of care. [] Dragon Disclaimer Dragon Disclaimer This electronic medical record was generated, in whole or in part, using a voice recognition dictation system. Departure Departure Impression: Primary Impression: Pyelonephritis Additional Impression: Hypercalcemia Disposition: 01 HOME, SELF-CARE Condition: STABLE Referrals: KARINA LEHMAN MD (PCP) Patient Instructions: Pyelonephritis, Adult, [id number] Additional Instructions: Fill prescription(s) and use as directed. Avoid bladder irritants such as caffeine, carbonation, and spicy foods. Increase clear fluids. If you are taking a calcium supplement stop taking it at this time. Follow up with your primary care doctor in 1-2 days, return to the ER if symptoms worsen. Scripts Ondansetron (ONDANSETRON ODT) 4 Mg Tab.rapdis 1 TAB PO PRN Q6-8HRS PRN for NAUSEA/VOMITING for 4 Days, #16 TAB 0 Refills Prov: SALONI CLAYTON APRN 12/24/18 Hydrocodone Bit/Acetaminophen (HYDROCODONE-APAP 5-325 ) 1 Tab Tablet 1 TAB PO PRN Q6HRS PRN for PAIN for 3 Days, #10 TAB 0 Refills Prov: SALONI CLAYTON [employer]MITE EXTERMINATOR HELPER 12/24/18 Cefdinir (CEFDINIR) 300 Mg Capsule 1 CAP PO BID for 10 Days, #20 CAP 0 Refills Prov: SALONI CLAYTON TERMITE EXTERMINATOR HELPER 12/24/18 Problem Qualifiers SALONI CLAYTON APRN Dec 24, 2018 19:19
[2018-12-24 19:32] VITALS: BP 140/76
[2018-12-24] MEDS ORDERED: ONDA4TAB12 PO (19:34)
[2018-12-24] MEDS ORDERED: HYDR-2761 PO (19:34)
[2018-12-24] MEDS ORDERED: CEFD300C PO (19:34)
[2018-12-24 20:46] LABS: % EOS 1 % (0-5); % LYMPHS 8 % (24-48); % MONOS 5 % (0-10); % SEGS 86 % (35-66); ANISOCYTOSIS SLIGHT; OVALOCYTES OCC; PLT ESTIMATE INCREASED (ADEQUATE)
== END 2018-12-24 19:53 | disposition home or self-care (01) ==
LOC: ER 16:21
DX: N12 Tubulo-interstitial nephritis, not specified as acute or chronic (principal); E83.52 Hypercalcemia; J44.9 Chronic obstructive pulmonary disease, unspecified; I25.2 Old myocardial infarction; Z86.79 Personal history of other diseases of the circulatory system; Z95.1 Presence of aortocoronary bypass graft; E66.9 Obesity, unspecified; Z68.42 Body mass index [BMI] 45.0-49.9, adult; Z90.710 Acquired absence of both cervix and uterus
CPT/HCPCS: 36415; 80053; 81001; 85007; 85025; 96361; 96374; 96375; 99284; J0696; J2270; J7040

== ENCOUNTER → 2018-12-24 | Outpatient (CLI) | payer BC ==
[~2018-12-24] MED LIST changes: +CEFD300C PO; +CIPR500T PO; +HYDR-2761 PO; +METR-34 PO; +ONDA4TAB12 PO; +PERFLUTREN PROTEIN-A MICROSPHR 0.22 MG/ML 3 ML VIAL. IV ONE
--- NOTE | 2018-12-24 12:05 | CARD ---
MR#: [id number] Date of Study: 12/24/2018 Ordering Physician: LEO PEDRAZA, Referring Physician: LEO PEDRAZA, Tech: Tiffany Carlin APPROVED REPORT EXAM: Two-dimensional and M-mode echocardiogram with Doppler and color Doppler. Other Information Quality : FairHR: 67bpm Technically limited study due to body habitus and COPD INDICATION COPD Congestive Heart Failure Echo Enhancing Agent Indication: Endocardial border delineation Agent/Amount Used: Optison 10mL Surgery/Intervention ICD/Pacemaker: Date: 2014 Myocardial Infarction 2014 RISK FACTORS Hypertension 2D DIMENSIONS RVDd3.8 (2.9-3.5cm)Left Atrium(2D)4.2 (1.6-4.0cm) IVSd1.2 (0.7-1.1cm)Aortic Root(2D)2.6 (2.0-3.7cm) LVDd5.4 (3.9-5.9cm)LVOT Diameter2.1 (1.8-2.4cm) PWd1.1 (0.7-1.1cm)LVDs3.4 (2.5-4.0cm) FS (%) 37.6 %SV95.7 ml LVEF(%)67.1 (>50%) Aortic Valve AoV Peak Jase.137.3cm/sAoV VTI33.5cm AO Peak GR.7.5mmHgLVOT Peak Jase.58.9cm/s LVOT VTI 15.17cmAO Mean GR.5mmHg KARELY (VMAX)1.58ic2XAF (VTI)1.50cm2 Mitral Valve MV E Hgicafni55.2cm/sMV DECEL [id number] MV A Pxfqaclq31.9cm/sMV [id number] E/A Ratio1.1MVA (PHT)4.22cm2 TDI E/Lateral E'8.1E/Medial E'10.6 Pulmonary Valve PV Peak Ezvuriik585.6cm/sPV Peak Grad.5mmHg Tricuspid Valve TR P. Lhmtckal673yg/sRAP LECWKRYW3rwMz TR Peak Gr.95feWwMZGL26muBm Pulmonary Vein S1 Cailelbh78.5cm/sD2 Twithdna04.9cm/s PVa [id number] LEFT VENTRICLE The left ventricle is normal size. There is mild to moderate concentric left ventricular hypertrophy. Left ventricular systolic function is moderately impaired. The ejection fraction is estimated at 30- 35%. There is global hypokinesis of the left ventricle. Transmitral Doppler flow pattern is Grade II- pseudonormal filling dynamics. RIGHT VENTRICLE The right ventricle is mildly dilated. There is normal right ventricular wall thickness. Systolic fun ction is borderline reduced. There is a pacemaker lead in the right ventricle. ATRIA The left atrium size is normal. There is a pacemaker lead seen in the right atrium. The interatrial s eptum is intact with no evidence for an atrial septal defect or patent foramen ovale as noted on 2-D or Doppler imaging. AORTIC VALVE The aortic valve is not well visualized. Doppler and Color Flow revealed no significant aortic regurg itation. There is no significant aortic valvular stenosis. MITRAL VALVE The mitral valve is normal in structure and function. There is no evidence of mitral valve prolapse. There is no mitral valve stenosis. Doppler and Color-flow revealed trace mitral regurgitation. TRICUSPID VALVE The tricuspid valve is not well visualized. Doppler and Color Flow revealed trace tricuspid regurgita tion with an estimated PAP of 40 mmHg. There is no tricuspid valve stenosis. PULMONIC VALVE The pulmonic valve is not well visualized. Doppler and Color Flow revealed trace pulmonic valvular re gurgitation. GREAT VESSELS The aortic root is normal in size. The IVC was not visualized. PERICARDIAL EFFUSION There is no evidence of significant pericardial effusion. Critical Notification Critical Value: No <Conclusion> Left ventricular systolic function is moderately impaired. The ejection fraction is estimated at 30-35%. Transmitral Doppler flow pattern is Grade II-pseudonormal filling dynamics. There is a pacemaker lead in the RA/RV. Trace mitral regurgitation. Trace tricuspid regurgitation with an estimated PAP of 40 mmHg. There is no evidence of significant pericardial effusion. Signed by : Leo Pedraza, Electronically Approved : 12/24/2018 12:04:59
== END | disposition home or self-care (01) ==
LOC: ECHO 07:38
PROVIDERS: ATTEND Internal Medicine Cardiovascular Disease
DX: I50.22 Chronic systolic (congestive) heart failure (principal); J44.9 Chronic obstructive pulmonary disease, unspecified; I25.2 Old myocardial infarction; Z95.0 Presence of cardiac pacemaker
CPT/HCPCS: C8929; Q9956

== ENCOUNTER 2019-01-20 11:01 | Emergency (ER) | payer BC ==
[~2019-01-20] VITALS: Ht 162.6 cm; Wt 90.7 kg
[~2019-01-20 11:01] MED LIST changes: +CEFD300C PO; +HYDR-2761 PO
--- NOTE | 2019-01-20 11:13 | PHYS DOC ---
Past Medical History Past Medical History: CAD, CHF, COPD, Diverticulosis, [place] Additional Past Medical Histor: obesity, HYPOKALEMIA Past Surgical History: Coronary Bypass Surgery, Hysterectomy, Other Additional Past Surgical Histo: TEMP TRACHEOSTOMY Smoking: Cigarettes, Quit Greater Than 1 Year Alcohol Use: None Drug Use: None Adult General Chief Complaint Chief Complaint: SHORTNESS OF BREATH [facility] HPI Patient is a 58-year-old female who presents to the emergency department for evaluation. She states that over the past 2 days she has had increasing enio rtness of breath, along with a cough. She states initially her cough is productive of greenish sputum but now her cough is dry. She has had a hoarse and raspy voice, but no muffled voice. She denies any pain, including any throat pain, or chest pain. She has not had any fevers or chills. There are no alleviating or exacerbating factors to her symptoms. Patient states that she has taken a nebulizer treatment at home without improvement in her symptoms. Review of Systems Review of Systems Constitutional: Denies fever or chills [] Eyes: Denies change in visual acuity, redness, or eye pain [] HENT: Denies nasal congestion or sore throat [] Respiratory:No additional information not addressed in HPI [] Cardiovascular: The patient denies any shortness of breath, chest pain, palpitations, or orthopnea [] GI: Denies abdominal pain, nausea, vomiting, bloody stools or diarrhea [] : Denies dysuria or hematuria [] Musculoskeletal: Denies back pain or joint pain [] Integument: Denies rash or skin lesions [] Neurologic: Denies headache, focal weakness or sensory changes [] Endocrine: Denies polyuria or polydipsia [] All other systems were reviewed and found to be within normal limits, except as documented in this note. Current Medications Current Medications Current Medications Medications (Trade) Dose Ordered Sig/[facility] Start Time Stop Time Status Last Admin Dose Admin Albuterol/ Ipratropium (Duoneb) 3 ml 1X ONCE 01/20/19 12:00 01/20/19 12:02 DC 01/20/19 12:01 3 ML Methylprednisolone Sodium Succinate (SOLU-Medrol 125MG VIAL) 125 mg 1X ONCE 01/20/19 11:15 01/20/19 11:16 DC 01/20/19 11:45 125 MG Allergies Allergies Allergies Coded Allergies Type Severity Reaction Last Updated Verified No Known Drug Allergies 01/08/15 No Physical Exam Physical Exam PHYSICAL EXAM: CONSTITUTIONAL: Well developed, well nourished HEAD: normocephalic, atraumatic EENT: PERRL, EOMI. Conjunctivae normal color, sclerae non-icteric; moist mucous membranes. The oropharynx is unremarkable. The airways patent. NECK: Supple, non-tender; no meningismus. There is no submandibular lymphadenopathy. There is a healed tracheostomy scar. LUNGS: There are globally diminished breath sounds, voice is normal sounding, there is mild respiratory neck or wheezing, most prominent in the upper lobes, with summation in the neck. There is no laryngeal tenderness to palpation, or mera stridor. HEART: Regular rate and rhythm, no murmur CHEST: No deformity; non-tender ABDOMEN: The abdomen is soft, and non-tender, no masses or bruits. EXTREM: Normal ROM; no deformity, no calf tenderness. Normal pulses palpable in all extremities. There is 2+ bilateral pedal edema with skin changes of venous stasis bilaterally. SKIN: No rash; no diaphoresis NEURO: Alert; normal speech and cognition; CN's grossly intact; strength grossly intact without focal deficit. BACK: No CVA TTP. Current Patient Data Vital Signs Vital Signs Date Time Temp Pulse Resp B/P (MAP) Pulse Ox O2 Delivery O2 Flow Rate FiO2 01/20/19 12:01 97 Room Air 01/20/19 11:07 98.3 90 24 156/83 (107) 98.3 Lab Values Laboratory Tests Test 01/20/19 11:19 White Blood Count 4.1 x10^3/uL (4.0-11.0) Red Blood Count 3.93 x10^6/uL (3.50-5.40) Hemoglobin 13.2 g/dL (12.0-15.5) Hematocrit 39.9 % (36.0-47.0) Mean Corpuscular Volume 102 fL (79-100) H Mean Corpuscular Hemoglobin 34 pg (25-35) Mean Corpuscular Hemoglobin Concent 33 g/dL (31-37) Red Cell Distribution Width 16.4 % (11.5-14.5) H Platelet Count 238 x10^3/uL (140-400) Neutrophils (%) (Auto) 68 % (31-73) Lymphocytes (%) (Auto) 17 % (24-48) L Monocytes (%) (Auto) 12 % (0-9) H Eosinophils (%) (Auto) 1 % (0-3) Basophils (%) (Auto) 1 % (0-3) Neutrophils # (Auto) 2.8 x10^3/uL (1.8-7.7) Lymphocytes # (Auto) 0.7 x10^3/uL (1.0-4.8) L Monocytes # (Auto) 0.5 x10^3/uL (0.0-1.1) Eosinophils # (Auto) 0.0 x10^3/uL (0.0-0.7) Basophils # (Auto) 0.1 x10^3/uL (0.0-0.2) Sodium Level 138 mmol/L (136-145) Potassium Level 4.5 mmol/L (3.5-5.1) Chloride Level 103 mmol/L (98-107) Carbon Dioxide Level 27 mmol/L (21-32) Anion Gap 8 (6-14) Blood Urea Nitrogen 18 mg/dL (7-20) Creatinine 0.9 mg/dL (0.6-1.0) Estimated GFR (Cockcroft-Gault) 64.8 BUN/Creatinine Ratio 20 (6-20) Glucose Level 113 mg/dL (70-99) H Calcium Level 10.0 mg/dL (8.5-10.1) Total Bilirubin 0.6 mg/dL (0.2-1.0) Aspartate Amino Transferase (AST) 16 U/L (15-37) Alanine Aminotransferase (ALT) 22 U/L (14-59) Alkaline Phosphatase 167 U/L (46-116) H Troponin I Quantitative < 0.017 ng/mL (0.000-0.055) VG-Bnf-W-Type Natriuretic Peptide 376 pg/mL (0-124) H Total Protein 8.0 g/dL (6.4-8.2) Albumin 3.4 g/dL (3.4-5.0) Albumin/Globulin Ratio 0.7 (1.0-1.7) L Laboratory Tests 01/20/19 11:19 Laboratory Tests 01/20/19 11: EKG EKG []Normal sinus rhythm at a rate of 85 beats for minute, normal axis, normal intervals, nonspecific ST/T changes are present diffusely. The EKG is not significantly changed compared to patient's prior EKG. Radiology/Procedures Radiology/Procedures PROCEDURE: CHEST PA & LATERAL CHEST PA LATERAL History: Cough, shortness of breath, COPD Comparison: 12/25/2016 2 view chest x-ray Findings: Sternal wires are present. Mediastinal clips noted. Dual-lead left-sided pacemaker present. The cardiomediastinal silhouette is normal. Pulmonary vasculature is normal. The lungs are clear. No pleural effusion or pneumothorax is seen. There is no acute bone abnormality. IMPRESSION: No acute cardiopulmonary process. [] Course & Med Decision Making Course & Med Decision Making Pertinent Labs and Imaging studies reviewed. (See chart for details) []12:15 PM: The patient is feeling significantly better. Her oxygen saturation is 95-98% on room air at this time. Her wheezing has significantly improved. I discussed test results, I discussed overnight observation but the patient feels well enough to go home, return precautions were discussed in detail. Dragon Disclaimer Dragon Disclaimer This electronic medical record was generated, in whole or in part, using a voice recognition dictation system. Departure Departure Impression: Primary Impression: COPD exacerbation Disposition: 01 HOME, SELF-CARE Condition: STABLE Referrals: KARINA LEHMAN MD (PCP) Patient Instructions: Chronic Obstructive Pulmonary Disease Exacerbation Scripts Prednisone (PREDNISONE) 20 Mg Tablet 40 MG PO DAILY for 5 Days, #10 TAB Prov: DEYSI PRUITT MD 01/20/19 Azithromycin (AZITHROMYCIN TABLET) 250 Mg Tablet 1 PKG PO UD, #6 TAB Prov: DEYSI PRUITT MD 01/20/19 DEYSI PRUITT MD Jan 20, 2019 11:13
[2019-01-20] MEDS ORDERED: IPRATRPIUM/ALBUTEROL 0.5/2.5MG 3 ML NEBU. NEB ONE ×2 (11:15→12:00)
[2019-01-20] MEDS ORDERED: methylPREDNISolone SOD SUCC PF 125 MG/2 ML VIAL. IV ONE (11:15)
[2019-01-20 11:33] LABS: BASO # 0.1 x10^3/uL (0.0-0.2); BASO % 1 % (0-3); EOS % 1 % (0-3); HEMATOCRIT 39.9 % (36.0-47.0); HEMOGLOBIN 13.2 g/dL (12.0-15.5); LYMPH # 0.7 x10^3/uL (1.0-4.8); LYMPH % 17 % (24-48); MEAN CORPUSCULAR HEMOGLOBIN 34 pg (25-35); MEAN CORPUSCULAR HGB CONC 33 g/dL (31-37); MEAN CORPUSCULAR VOLUME 102 fL (79-100); MONO # 0.5 x10^3/uL (0.0-1.1); MONO % 12 % (0-9); NEUT # 2.8 x10^3/uL (1.8-7.7); NEUT % 68 % (31-73); PLATELET COUNT 238 x10^3/uL (140-400); RED BLOOD COUNT 3.93 x10^6/uL (3.50-5.40); RED CELL DISTRIBUTION WIDTH 16.4 % (11.5-14.5); WHITE BLOOD COUNT 4.1 x10^3/uL (4.0-11.0)
--- NOTE | 2019-01-20 11:45 | RAD ---
CHEST PA LATERAL History: Cough, shortness of breath, COPD Comparison: 12/25/2016 2 view chest x-ray Findings: Sternal wires are present. Mediastinal clips noted. Dual-lead left-sided pacemaker present. The cardiomediastinal silhouette is normal. Pulmonary vasculature is normal. The lungs are clear. No pleural effusion or pneumothorax is seen. There is no acute bone abnormality. IMPRESSION: No acute cardiopulmonary process. Electronically signed by: Saad Anglin MD (01/20/2019 11:42 AM) [facility]
--- NOTE | 2019-01-20 11:47 | EKG ---
[facility] [address] [place] [address] Test Date: 2019-01-20 Test Time: 11:39:36 Pat Name: YUMIKO CASTRO Department: Room: Gender: F Garnisher: : 1960 Requested By: DEYSI PRUITT Order Number: [id number] Reading MD: Measurements Intervals [place] Rate: 85 P: 5 PA: 180 QRS: 2 QRSD: 90 T: 82 QT: 364 QTc: 433 Interpretive Statements SINUS RHYTHM INTERPOLATED ATRIAL PREMATURE COMPLEX(ES) QRS(T) CONTOUR ABNORMALITY CONSISTENT WITH ANTERIOR INFARCT AGE UNDETERMINED CONSISTENT WITH INFEROLATERAL INFARCT PROBABLY OLD ABNORMAL ECG RI6.01 No previous ECG available for comparison
[2019-01-20 11:48] LABS: CREATININE 0.9 mg/dL (0.6-1.0); GFR 64.8; POTASSIUM 4.5 mmol/L (3.5-5.1)
[2019-01-20 11:53] LABS: ALBUMIN 3.4 g/dL (3.4-5.0); ALBUMIN/GLOBULIN RATIO 0.7 (1.0-1.7); TOTAL BILIRUBIN 0.6 mg/dL (0.2-1.0)
[2019-01-20] MEDS ORDERED: AZIT250T6 PO (12:20)
[2019-01-20] MEDS ORDERED: PRED20TA PO (12:20)
[2019-01-20 12:38] VITALS: BP 128/71
== END 2019-01-20 12:43 | disposition home or self-care (01) ==
LOC: ER 11:01
DX: J44.1 Chronic obstructive pulmonary disease with (acute) exacerbation (principal); I25.10 Atherosclerotic heart disease of native coronary artery without angina pectoris; I50.9 Heart failure, unspecified; K57.90 Diverticulosis of intestine, part unspecified, without perforation or abscess without bleeding; I21.9 Acute myocardial infarction, unspecified; E66.9 Obesity, unspecified; Z68.34 Body mass index [BMI] 34.0-34.9, adult; I25.810 Atherosclerosis of coronary artery bypass graft(s) without angina pectoris; Z90.710 Acquired absence of both cervix and uterus; Z87.891 Personal history of nicotine dependence
CPT/HCPCS: 36415; 71046; 80053; 83880; 84484; 85025; 93005; 94640; 96374; 99285; J2930; J7620